=== PATIENT | female | born 1960 | race African-American/Black ===

== ENCOUNTER → 2017-10-06 | Outpatient (CLI) | payer MEDICARE, OTHER ==
[~2017-10-06] MED LIST: ASPI-482 PO; CARV12.52 PO; CARV6.252 PO; CHOL100017 PO; COLE3.753 PO; DIAZEPAM10 MG PO; DICY20TA3 PO; ESOM40CA PO; FLUT10SP NS; FLUT1DIS5 IH; FURO20TA3 PO; IOHEXOL 180 MG/ML 10 ML VIAL. ONE; IPRA3AMP23 IH; IPRA4AER IH; KETO5DRO72 OP; LEVO5TAB2 PO; LIDOCAINE 2% PF 2ML VIAL. ONE; LINA145C PO; LOSA25TA4 PO; MESA800T2 PO; METF750T2 PO; NAPR-514 PO; OXYC-327 PO; OXYC15TA PO; POLY17PO29 PO; POLY2500 PO; POTA20TA82 PO; POTA99TA PO; PRAV20TA2 PO; PRED5DRO16 OP; PSYL0.5215 PO; TOPI100T8 PO; TORS20TA2 PO; TRAM50TA PO; TRAZ150T49 PO; methylPREDNISolone ACETATE 40 MG/ML VIAL. ONE; methylPREDNISolone ACETATE 80 MG/ML VIAL. ONE
--- NOTE | 2017-10-06 23:04 | PAIN ---
DATE OF SERVICE: 10/06/2017 INITIAL CONSULTATION FOR PAIN CLINIC CHIEF COMPLAINT: Left-sided low back and left lower extremity pain. SECONDARY COMPLAINT: Left-sided neck and left upper extremity pain. HISTORY OF PRESENT ILLNESS: This is a 57-year-old female who presents with history of pain for 20 years. The patient reports it gradually increased. 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 The patient reports over the years, she has had multiple physical therapies, chiropractic treatments, exercises, never had any interventional techniques by her report in the past. The patient reports that the pain is now constant, sharp, stabbing, shooting, throbbing, radiating as described in the left side, both the low back and leg and the neck and shoulder. The patient reports the low back and leg is her main chief complaint. The patient reports it wakens her from sleep at night at least 2-3 times. She has to take pain medication to get back to sleep. It affects her bowel or bladder control as well but without any incontinence she reports. It does affect her ability to walk. She uses a cane most times, does not have one with her on her presentation today. The patient did have some plain films of the lumbar spine done dated 04/02/2015. The patient reports no other studies since that time showed degenerative disk disease from L2 through L5 with marginal osteophytes note, [id number] bilateral articular facet disease from L4 to S1, no compression fractures, several pelvic calcifications consistent with phlebolith with degenerative changes seen throughout. The patient rates her disability rate from 0-10, 10 being the worst, is a 10 in all categories, family and home responsibilities, social activity, recreation, occupation, sexual behavior, life support activities and self-care activities. The patient reports no loss of motor function with significant fatigability of the left lower extremity with activity as well as the left upper extremity with repetitive motions, driving or reaching overhead repetitively. PAST MEDICAL HISTORY: Significant for type 2 diabetes; hypothyroidism; cigarette smoking, continues; hypertension; arthritis and obesity. PAST SURGICAL HISTORY: Previous surgery includes sinus surgery in 2002, cataract extraction in 2015 bilaterally and right ankle surgery in the past. CURRENT MEDICATIONS: Include metformin, naproxen, oxycodone extended release and immediate release, polyethylene, potassium, losartan, Welchol, Linzess, carvedilol, levocetirizine, pravastatin, torsemide, tramadol, daily baby aspirin, Nexium and Asacol. ALLERGIES: The patient is allergic to LATEX, SULFA, CEPHALEXIN, CODEINE and PENICILLIN. FAMILY HISTORY: Significant for hypertension and diabetes. SOCIAL HISTORY: The patient does not drink alcohol and does smoke about 1 pack a day and has so for the past 20 years or more. The patient is single, reports she is on disability secondary to her injury 20 years ago. Uses no recreational or illicit or illegal drugs or other substances. REVIEW OF SYSTEMS: The patient's review of systems is positive for those items mentioned in history of present illness. All systems reviewed and otherwise negative. It is complete, full and well documented on the patient's chart. PHYSICAL EXAMINATION: VITAL SIGNS: The patient's blood pressure 126/78, pulse 91, respirations 18, temperature is 98.2 degrees Fahrenheit, height is 5 feet 2 inches and weight is 287 pounds. GENERAL: The patient is awake, alert, oriented, appropriate and very pleasant demeanor. HEENT: Head shows normocephalic and atraumatic. Extraocular movements are intact and symmetrical. Oral cavity: Mucous membranes moist and pink. Dentition is intact. NECK: Shows anterior throat supple without palpable lymphadenopathy noted. Swallow reflex symmetrical. CHEST: Shows normal on inspection. Breath sounds clear to auscultation bilaterally. HEART: Shows S1 and S2 clear. No murmurs auscultated. ABDOMEN: Obese, soft, nontender and nondistended. No palpable organomegaly is noted. No rebound or guarding demonstrated. BACK: Shows spine grossly in the midline. Slight exaggeration of thoracic kyphosis, normal appearing cervical lordotic curvature and lumbar lordotic curvature. No previous scars are noted. The patient's lumbar paraspinous muscle shows symmetrical on inspection and palpation shows some moderate tenderness throughout the upper, middle and lower distribution of the paraspinous muscles bilaterally, only diffusely without specific radiation and without trigger points. No tenderness over the spinous processes, sacrum or sacroiliac regions. The patient has good rotational motion of the lumbar spine, both laterally greater than 10 degrees, right and left as well as extension greater than 10 degrees, forward flexion 45 degrees without significant pain reported. EXTREMITIES: The patient's lower extremities show deep tendon reflexes at 2+ in the patellar, 1+ tendo-calcaneus tendons are equal. Motor exam is strong with 5/5 dorsiflexion, extension, quadriceps and hamstring flexion and equal. Straight leg raise is noted to be slightly positive on the left at about 45 degrees, decreased with knee flexion, negative on the right. Gaenslen's and Jeff's maneuvers are negative bilaterally. Peripheral pulses are 1+ posterior tibia. No peripheral edema is noted bilaterally. Lower extremities are warm and dry to touch, equal in color and appearance. The patient is able to stand, stand on her toes without significant difficulty or loss of balance. Upper extremities show deep tendon reflexes 2+ in the biceps and triceps tendons. Motor exam is strong with sheet hanger strength rated 5/5 as is bicep and tricep flexion. Peripheral pulses are 2+ radial distribution. Shoulder shrug is strong and intact without loss of strength on resistance as is abduction of shoulder to 90 degrees without loss of strength bilaterally. SKIN: Shows warm and dry, good turgor. No sores, rashes or bruising. IMPRESSION: 1. This is a 57-year-old female with a long history approximately 20 years of previous injury with left-sided both cervical radicular symptoms and lumbar radicular symptoms with plain films of lumbar spine as noted. 2. Plain films of lumbar spine as noted. 3. Type 2 diabetes. 4. Hypertension. 5. Obesity. 6. Cigarette smoking. 7. Arthritis. PLAN: Options were discussed with the patient including conservative medical management, physical therapy, interventional techniques. She would like to pursue interventional techniques. We discussed a lumbar epidural steroid injection using the using description as well as anatomical models to describe the procedure. Risks were then discussed including, but not limited to bleeding, infection, possibility of epidural hematoma and subsequent neurological compromise, dural puncture, headaches, spinal cord and/or nerve damage, side effects of steroid medication and poor results regarding pain control. The patient understands and wished to proceed. The patient will return to the clinic in approximately 2 weeks for followup. We did discuss obtain MRI scans of both the cervical and lumbar spine has been 2 years since she had any studies done. To better understand any etiology that may be causing the radicular symptoms both in the neck and the low back, we will have these ordered and reviewed by the time she is set to return in approximately 2 weeks for followup. DIAGNOSES: 1. Lumbar radiculopathy with lumbar degenerative disk disease. 2. Cervical radiculopathy with cervical degenerative disk disease. PROCEDURES: Lumbar epidural steroid injection, translaminar approach at the L4-L5 level using C-arm fluoroscopic guidance under sterile prep and drape using local anesthetic. MEDICATION INJECTED: A total of 120 mg Depo-Medrol plus 10 mL of preservative-free normal saline and 2 mL of Isovue for contrast. CONDITION AT DISCHARGE: Stable. The patient tolerated the procedure well and had no complications. FRAN QUINTERO MD DR: VIJAY/leo JOB#: [id number] / [id number] ABDOUL Ashraf MD
== END | disposition home or self-care (01) ==
LOC: PNCL 12:41
PROVIDERS: ATTEND Anesthesiology
DX: M51.16 Intervertebral disc disorders with radiculopathy, lumbar region (principal); E11.9 Type 2 diabetes mellitus without complications; I10 Essential (primary) hypertension; M19.90 Unspecified osteoarthritis, unspecified site; F17.210 Nicotine dependence, cigarettes, uncomplicated; E66.9 Obesity, unspecified; E03.9 Hypothyroidism, unspecified; F32.9 Major depressive disorder, single episode, unspecified; J45.909 Unspecified asthma, uncomplicated; F41.9 Anxiety disorder, unspecified; K21.9 Gastro-esophageal reflux disease without esophagitis; Z79.899 Other long term (current) drug therapy; Z79.82 Long term (current) use of aspirin; Z68.33 Body mass index [BMI] 33.0-33.9, adult; Z91.040 Latex allergy status; Z88.2 Allergy status to sulfonamides; Z88.5 Allergy status to narcotic agent; Z88.8 Allergy status to other drugs, medicaments and biological substances; Z88.0 Allergy status to penicillin; Z98.42 Cataract extraction status, left eye; Z98.41 Cataract extraction status, right eye
CPT/HCPCS: 62323; J1030; J1040; J2001; Q9965

== ENCOUNTER → 2017-10-15 | Outpatient (CLI) | payer MEDICARE, OTHER ==
[~2017-10-15] MED LIST changes: -IOHEXOL 180 MG/ML 10 ML VIAL. ONE; -LIDOCAINE 2% PF 2ML VIAL. ONE; -LOSA25TA4 PO; +LOSA25TA5 PO; -methylPREDNISolone ACETATE 40 MG/ML VIAL. ONE; -methylPREDNISolone ACETATE 80 MG/ML VIAL. ONE
--- NOTE | 2017-10-15 15:58 | KCIC ---
MRI of the lumbar spine without contrast 10/15/2017 CLINICAL HISTORY: Chronic low back pain which radiates down the left leg. TECHNIQUE: Unenhanced T1-weighted and T2-weighted sagittal and axial and inversion recovery sagittal images of the lumbar spine were obtained. FINDINGS: Minimal S-shaped curvature of the thoracolumbar spine is seen. Degenerative signal changes are seen involving the L4-5 and L5-S1 discs. Degenerative signal changes are seen within the marrow surrounding these discs. Loss of height of the L5-S1 disc is noted. The conus medullaris is normal morphology, position, and signal characteristics. The L1-2 disc space is within normal limits. At the L2-3, L3-4 and L4-5 disc spaces there are mild generalized disc bulges. Degenerative changes are seen involving the facet joints bilaterally. There is mild ligamentum flavum hypertrophy bilaterally. These findings when combined do not result in significant central spinal canal or neural foraminal stenosis. At the L5-S1 disc space there is a mild to moderate generalized disc bulge. This is eccentric to the right. Degenerative changes are seen involving the facet joints bilaterally. There is mild ligamentum flavum hypertrophy bilaterally. These findings when combined result in mild central spinal canal stenosis. Mild right neural foraminal stenosis is seen. The left neural foramen is patent. IMPRESSION: The changes of degenerative disc disease are seen throughout the lumbar spine. These findings results in mild central spinal canal stenosis with mild right neural foraminal stenosis at L5-S1. Electronically signed by: Roel Peoples MD (10/15/2017 3:54 PM) [facility]
--- NOTE | 2017-10-15 16:12 | KCIC ---
MRI of the cervical spine without contrast 10/15/2017 CLINICAL HISTORY: Chronic neck pain which radiates down the left arm. TECHNIQUE: Unenhanced T1-weighted, T2-weighted and inversion recovery sagittal and gradient echo and T2-weighted axial images of the cervical spine were obtained. FINDINGS: Very mild lateral curvature of the cervical spine is seen convex to the left. There is straightening of the normal cervical lordosis. Degenerative signal changes are seen involving all of the disks of the cervical spine. Degenerative signal changes are seen within the marrow surrounding these discs. The cervical spinal cord is normal morphology, position, and signal characteristics. A 2.5 cm oval-shaped high signal intensity structure seen in the expected location of the right lobe of thyroid gland on the T2-weighted images. This is incompletely evaluated on this study. This may represent a colloid cyst. On the axial images throughout the cervical disc spaces, relatively mild degenerative changes are seen consisting of minimal to mild generalized disc bulges and degenerative changes involving the uncovertebral and facet joints. No focal disc herniation is seen. These findings do not result in significant central spinal canal or neural foraminal stenosis at any level. IMPRESSION: Relatively mild degenerative changes are seen involving the cervical spine as outlined above. These findings do not result in significant central spinal canal or neural foraminal stenosis at any level. Electronically signed by: Roel Peoples MD (10/15/2017 4:09 PM) [facility]
== END | disposition home or self-care (01) ==
LOC: KCIC MRI 13:16
PROVIDERS: ATTEND Anesthesiology
DX: M48.061 Spinal stenosis, lumbar region without neurogenic claudication (principal); M51.16 Intervertebral disc disorders with radiculopathy, lumbar region; M50.10 Cervical disc disorder with radiculopathy, unspecified cervical region; Z88.0 Allergy status to penicillin; Z88.2 Allergy status to sulfonamides; Z88.1 Allergy status to other antibiotic agents; Z91.040 Latex allergy status; Z88.5 Allergy status to narcotic agent; Z91.048 Other nonmedicinal substance allergy status
CPT/HCPCS: 72141; 72148

== ENCOUNTER → 2017-10-20 | Outpatient (CLI) | payer MEDICARE, OTHER ==
[~2017-10-20] MED LIST changes: +IOHEXOL 180 MG/ML 10 ML VIAL. ONE; +LIDOCAINE 2% PF 2ML VIAL. ONE; +methylPREDNISolone ACETATE 40 MG/ML VIAL. ONE; +methylPREDNISolone ACETATE 80 MG/ML VIAL. ONE
--- NOTE | 2017-10-20 19:52 | PAIN ---
DATE OF SERVICE: 10/20/2017 PROGRESS NOTE FOR PAIN CLINIC DIAGNOSES: 1. Lumbar radiculopathy with lumbar degenerative disk disease. 2. Cervical radiculopathy with cervical degenerative disk disease. HISTORY OF PRESENT ILLNESS: The patient is a 57-year-old female who returns for followup status post lumbar epidural steroid injection x 1. The patient reports about 60% improvement for the first week and then the pain returned to near its baseline level. The patient reports no new motor or sensory deficits, no new bowel or bladder incontinence or other complaints, but still significant pain across the low back, into the left lower extremity as it was previous. The patient reports it is constant, unbearable at times, stabbing, sharp, again doing much better for the first 5-6 days, but then returning fairly significantly. The patient reports no new motor or sensory deficits, no new bowel or bladder incontinence or other changes. The patient reports her pain is a 9 on a scale of 10 at its worst, 9 on average, 6 at its least and is a 9 today. The patient reports it awakens her from sleep, but only very rarely, usually worse with standing and walking, better with sitting or lying down. PHYSICAL EXAMINATION: VITAL SIGNS: The patient's blood pressure is 141/82, pulse 79, respirations 18, temperature 98.1 degrees Fahrenheit, height is 5 feet 2 inches, weight is 251 pounds. GENERAL: The patient is awake, alert, oriented, appropriate, very pleasant demeanor. HEENT: Head shows normocephalic, atraumatic. Extraocular muscles are intact and symmetrical. Oral cavity: Mucous membranes are moist and pink. Dentition is intact. NECK: Shows anterior throat supple without palpable lymphadenopathy noted. Swallow reflex is symmetrical. CHEST: Shows normal on inspection. Breath sounds are clear to auscultation bilaterally. HEART: Shows S1, S2 clear. No murmurs auscultated. ABDOMEN: Soft, nontender, nondistended. No palpable organomegaly is noted. No rebound or guarding demonstrated. BACK: Shows spine grossly in the midline. Slight exaggeration of thoracic kyphosis and some minor flattening of lumbar lordotic curvature. Lumbar paraspinous muscle shows symmetrical on inspection. Palpation shows some moderate tenderness diffusely, but only in the low lumbar distribution without radiation. The patient has good rotational motion of lumbar spine, both laterally as well as extension and flexion without difficulty. EXTREMITIES: Lower extremities show deep tendon reflexes 1+ in the patellar tendons and tendo calcaneus tendons. Motor exam is strong with approximately 4 on a scale of 5, but equal and symmetrical with dorsiflexion, extension, quadriceps and hamstring flexion and symmetrical. Peripheral pulses are 1+ posterior tibia. No peripheral edema is noted. Options were discussed with the patient. The patient's old chart was reviewed as her current medication regimen updated. Current review of systems updated today as well. We will proceed with a second in the series of lumbar epidural steroid injection today with fluoroscopic guidance. Risks were again discussed including, but not limited to bleeding, infection, possibility of epidural hematoma and subsequent neurological compromise, dural puncture, headaches, spinal cord and/or nerve damage, side effects of steroid medication and poor results regarding pain control. The patient understands and wished to proceed. The patient will return to the clinic in approximately 2 weeks for followup, was counseled on return appointment, activity level and side effects to be aware of. DIAGNOSIS: Lumbar radiculopathy with lumbar degenerative disk disease. PROCEDURE: Lumbar epidural steroid injection, translaminar approach at L5-S1 level using C-arm fluoroscopic guidance under sterile prep and drape using local anesthetic. MEDICATION INJECTED: A total of 120 mg Depo-Medrol plus 10 mL of preservative-free normal saline and 2 mL of Isovue for contrast. CONDITION AT DISCHARGE: Stable. The patient tolerated the procedure well, had no complications. FRAN QUINTERO MD DR: VIJAY/leo JOB#: [id number] / [id number]
== END | disposition home or self-care (01) ==
LOC: PNCL 11:24
PROVIDERS: ATTEND Anesthesiology
DX: M51.16 Intervertebral disc disorders with radiculopathy, lumbar region (principal); M50.10 Cervical disc disorder with radiculopathy, unspecified cervical region; Z88.1 Allergy status to other antibiotic agents; Z91.040 Latex allergy status; Z88.5 Allergy status to narcotic agent; Z88.0 Allergy status to penicillin; Z88.2 Allergy status to sulfonamides; Z91.048 Other nonmedicinal substance allergy status
CPT/HCPCS: 62323; J1030; J1040; J2001; Q9965

== ENCOUNTER → 2017-11-03 | Outpatient (CLI) | payer MEDICARE, OTHER ==
--- NOTE | 2017-11-03 17:27 | RAD ---
Examination: 2 views of the left shoulder and the 3 views of the bilateral knees HISTORY: History of left shoulder pain from lifting, bilateral knee pain COMPARISON: None available FINDINGS: Left shoulder: The humerus head is within the glenoid. The acromioclavicular joint grossly appears unremarkable.There is no acute fracture or dislocation identified. Bilateral knees: There is moderate joint space loss identified in the bilateral knee joints particularly in the medial compartments. There is no acute fracture-dislocation identified. IMPRESSION: 1. No acute osseous findings. 2. Moderate tricompartmental degenerative changes bilateral knees. Electronically signed by: Familia Riley MD (11/03/2017 5:24 PM) [id number]
--- NOTE | 2017-11-03 20:17 | PAIN ---
DATE OF SERVICE: 11/03/2017 PROGRESS NOTE FOR PAIN CLINIC DIAGNOSES: 1. Lumbar radiculopathy with lumbar degenerative disk disease. 2. Cervical radiculopathy with cervical degenerative disk disease. 3. Bilateral knee joint pain. 4. Left shoulder joint pain. HISTORY OF PRESENT ILLNESS: The patient is a 57-year-old female who returns for followup status post lumbar epidural steroid injection x 2. The patient reports that she did very well after the last injection with approximately 50% improvement in her low back and left lower extremity pain. The pain is still there, but is much reduced. She has been increasing her distance walking, also bending with greater ease and comfort, doing household activities with greater ease, sleeping well at night, but reports that it can awaken her, but not every night, but about every 6-8 hours it can if she lays on her left side. The patient reports no new motor or sensory deficits, no new bowel or bladder incontinence or other complaints. The patient reports her pain is a 7 on a scale of 10 at its worst, 6 on average, 6 at its least, that is described as stabbing, aching and dull and radiating into the left leg. The patient also complains of left shoulder pain with motion and bilateral knee pain, which has not changed with the injections. PHYSICAL EXAMINATION: VITAL SIGNS: The patient's blood pressure is 125/30, pulse 75, respirations are 16, temperature 98.0 degrees Fahrenheit, height is 5 feet 2 inches, weight is 248 pounds. GENERAL: The patient is awake, alert, oriented, appropriate, very pleasant demeanor. HEENT: Head shows normocephalic, atraumatic. Extraocular movements are intact and symmetrical. Oral cavity: Mucous membranes are moist and pink. Dentition is intact. NECK: Shows anterior throat supple without palpable lymphadenopathy noted. Swallow reflex is symmetrical. CHEST: Shows normal on inspection. Breath sounds are clear to auscultation bilaterally. HEART: Shows S1, S2 clear. No murmurs auscultated. ABDOMEN: Obese, soft, nontender, nondistended. No palpable organomegaly is noted. No rebound or guarding demonstrated. BACK: Shows spine grossly in the midline. Normal appearing thoracic kyphosis and flattening of lumbar lordotic curvature. Lumbar paraspinous muscle shows symmetrical with diffuse tenderness throughout the upper, middle and lower distribution of the paraspinous muscles, but only diffusely without radiation. EXTREMITIES: Lower extremities show deep tendon reflexes 1+ in the patellar and tendo-calcaneus tendons. Motor exam is strong, approximately 4 on a scale of 5, but equal and symmetrical with dorsiflexion and extension. Peripheral pulses are 1+ posterior tibial. Options were discussed with the patient. The patient's old chart was reviewed as her current medication regimen updated. Current review of systems updated today as well. We will proceed with a lumbar epidural steroid injection today with fluoroscopic guidance, it is the third in the series. Risks were again discussed including, but not limited to bleeding, infection, possibility of epidural hematoma, subsequent neurologic compromise, dural puncture, headaches, spinal cord and/or nerve damage, side effects of steroid medication and poor results regarding pain control. The patient understands and wished to proceed. The patient will return to the clinic in approximately 2 weeks for followup, was counseled on return appointment, activity level and side effects to be aware of. Also, order x-rays, plain films of the bilateral knees and the left shoulder to see if she has any significant pain with motion of each of these joints. We will order these and have them scheduled soon. DIAGNOSIS: Lumbar radiculopathy with lumbar degenerative disk disease. PROCEDURE: Lumbar epidural steroid injection, translaminar approach at L5-S1 level using C-arm fluoroscopic guidance under sterile prep and drape using local anesthetic. MEDICATION INJECTED: A total of 120 mg Depo-Medrol plus 10 mL of preservative-free normal saline and 2 mL of Isovue for contrast. CONDITION AT DISCHARGE: Stable. The patient tolerated the procedure well, had no complications. FRAN QUINTERO MD DR: VIJAY/leo JOB#: [id number] / [id number]
== END | disposition home or self-care (01) ==
LOC: PNCL 11:22
PROVIDERS: ATTEND Anesthesiology
DX: M51.16 Intervertebral disc disorders with radiculopathy, lumbar region (principal); M50.10 Cervical disc disorder with radiculopathy, unspecified cervical region; M25.562 Pain in left knee; M25.561 Pain in right knee; M25.512 Pain in left shoulder; Z88.0 Allergy status to penicillin; Z88.2 Allergy status to sulfonamides; Z88.5 Allergy status to narcotic agent; Z88.1 Allergy status to other antibiotic agents; Z91.048 Other nonmedicinal substance allergy status; Z91.040 Latex allergy status
CPT/HCPCS: 62323; 73030; 73562; J1030; J1040; J2001; Q9965

== ENCOUNTER 2018-04-11 15:38 | Inpatient (IN) | payer MEDICARE, OTHER ==
[~2018-04-11] VITALS: Ht 157.5 cm; Wt 111.6 kg
[~2018-04-11 15:38] MED LIST changes: +CARV12.511 PO; -CARV12.52 PO; +CARV6.2511 PO; -CARV6.252 PO; -IOHEXOL 180 MG/ML 10 ML VIAL. ONE; -LIDOCAINE 2% PF 2ML VIAL. ONE; -LINA145C PO; +LINZESS145 MCG PO; -LOSA25TA5 PO; +LOSA25TA54 PO; -OXYC-327 PO; +OXYC1TAB19 PO; -methylPREDNISolone ACETATE 40 MG/ML VIAL. ONE; -methylPREDNISolone ACETATE 80 MG/ML VIAL. ONE
[2018-04-11] MEDS ORDERED: IPRATRPIUM/ALBUTEROL 0.5/2.5MG 3 ML NEBU. NEB ONE (17:45)
[2018-04-11] MEDS ORDERED: IV NORMAL SALINE 500ML BAG 500 ML IV ONE (17:45)
--- NOTE | 2018-04-11 18:34 | PHYS DOC ---
Past Medical History Past Medical History: Diabetes-Type II, Hypertension Past Surgical History: Other Additional Past Surgical Histo: ANKLE SURG, NASAL SINUS. Alcohol Use: None Drug Use: None Adult General Chief Complaint Chief Complaint: SHORTNESS OF BREATH HPI HPI 57 y/o female presents to ER for c/o 3 wk hx of SOA. She reports she was seen by her PCP and had been tx'd with an antibiotic- her sxs have continued so she came to ER for eval. She reports this last weekend she had N/V and fever. She denies N/V/D episodes today. She reports she has had wheezing with prod. cough and chest congestion. She reports she has had intermittent mid CP which increases with coughing episodes. She reports she has felt fatigued denies focal weaknesses. She denies abd pain, urinary sxs, neck/back pain, or acute swelling to LEs. Review of Systems Review of Systems Constitutional: Reports fever last weekend- reports fatigue Eyes: Denies change in visual acuity, redness, or eye pain [] HENT: Denies nasal congestion or sore throat [] Respiratory: Reports prod. cough and SOA Cardiovascular: Reports mid CP GI: Denies abdominal pain, nausea, vomiting, bloody stools or diarrhea [] : Denies dysuria or hematuria [] Musculoskeletal: Denies back/neck pain or joint pain [] Integument: Denies rash or skin lesions [] Neurologic: Denies headache, focal weakness or sensory changes [] Endocrine: Denies polyuria or polydipsia [] All other systems were reviewed and found to be within normal limits, except as documented in this note. Current Medications Current Medications Current Medications Medications (Trade) Dose Ordered Sig/Julee Start Time Stop Time Status Last Admin Dose Admin Albuterol/ Ipratropium (Duoneb) 3 ml 1X ONCE 04/11/18 17:45 04/11/18 17:47 DC 04/11/18 17:57 3 ML Sodium Chloride 500 ml @ 500 mls/hr 1X ONCE 04/11/18 17:45 04/11/18 18:44 DC 04/11/18 19:26 500 MLS/HR Allergies Allergies Physical Exam Physical Exam Constitutional: Well developed, well nourished, no acute distress, non-toxic appearance. [] HENT: Normocephalic, atraumatic, bilateral ears normal, oropharynx moist, no oral exudates, nose normal. [] Eyes: Pupils equal, conjunctiva normal, no discharge. [] Neck: Normal range of motion, no tenderness, supple, no stridor. Trachea midline Cardiovascular:Heart rate regular rhythm, no murmur [] Lungs & Thorax: Coarse sounds bilat. upper [place] with expir. wheezing bilat.- decreased air movement in in bases. Resp. equal/nonlabored. Speaking in full sentences. Abdomen: Bowel sounds normal, soft, no tenderness, no masses, no pulsatile masses. [] Skin: Warm, dry, no erythema, no rash. [] Back: No tenderness, no CVA tenderness. [] Extremities: No tenderness, no cyanosis, no clubbing, ROM intact, no edema. [] Neurologic: Alert and oriented X 3, normal motor function, normal sensory function, no focal deficits noted. [] Psychologic: Affect normal, judgement normal, mood normal. [] Current Patient Data Vital Signs Vital Signs Date Time Temp Pulse Resp B/P (MAP) Pulse Ox O2 Delivery O2 Flow Rate FiO2 04/11/18 19:11 76 129/67 (87) 97 Room Air 04/11/18 17:30 20 04/11/18 16:20 98.6 98.6 Lab Values Laboratory Tests Test 04/11/18 18:25 04/11/18 18:40 Influenza Type A Antigen Negative (NEGATIVE) Influenza Type B Antigen Negative (NEGATIVE) White Blood Count 5.4 x10^3/uL (4.0-11.0) Red Blood Count 4.33 x10^6/uL (3.50-5.40) Hemoglobin 12.2 g/dL (12.0-15.5) Hematocrit 37.9 % (36.0-47.0) Mean Corpuscular Volume 88 fL (79-100) Mean Corpuscular Hemoglobin 28 pg (25-35) Mean Corpuscular Hemoglobin Concent 32 g/dL (31-37) Red Cell Distribution Width 14.3 % (11.5-14.5) Platelet Count 270 x10^3/uL (140-400) Neutrophils (%) (Auto) 53 % (31-73) Lymphocytes (%) (Auto) 35 % (24-48) Monocytes (%) (Auto) 11 % (0-9) H Eosinophils (%) (Auto) 0 % (0-3) Basophils (%) (Auto) 0 % (0-3) Neutrophils # (Auto) 2.9 x10^3uL (1.8-7.7) Lymphocytes # (Auto) 1.9 x10^3/uL (1.0-4.8) Monocytes # (Auto) 0.6 x10^3/uL (0.0-1.1) Eosinophils # (Auto) 0.0 x10^3/uL (0.0-0.7) Basophils # (Auto) 0.0 x10^3/uL (0.0-0.2) Sodium Level 143 mmol/L (136-145) Potassium Level 4.1 mmol/L (3.5-5.1) Chloride Level 106 mmol/L (98-107) Carbon Dioxide Level 25 mmol/L (21-32) Anion Gap 12 (6-14) Blood Urea Nitrogen 8 mg/dL (7-20) Creatinine 0.9 mg/dL (0.6-1.0) Estimated GFR (Cockcroft-Gault) 77.5 BUN/Creatinine Ratio 9 (6-20) Glucose Level 105 mg/dL (70-99) H Calcium Level 8.3 mg/dL (8.5-10.1) L Magnesium Level 2.3 mg/dL (1.8-2.4) Total Bilirubin 0.1 mg/dL (0.2-1.0) L Aspartate Amino Transferase (AST) 23 U/L (15-37) Alanine Aminotransferase (ALT) 20 U/L (14-59) Alkaline Phosphatase 93 U/L (46-116) Troponin I Quantitative < 0.017 ng/mL (0.000-0.055) Total Protein 7.3 g/dL (6.4-8.2) Albumin 3.2 g/dL (3.4-5.0) L Albumin/Globulin Ratio 0.8 (1.0-1.7) L Laboratory Tests 04/11/18 18:40 Laboratory Tests 04/11/18 18:40 EKG EKG EKG obtained 04/11/18 at [address] Gallegos Sinus rhythm Rate 79 No STEMI Radiology/Procedures Radiology/Procedures PROCEDURE: CHEST PA & LATERAL CHEST PA LATERAL History: Cough, congestion, shortness of air for 2 weeks Comparison: 03/31/2013 Findings: 2 views of the chest are submitted. There is no pleural fluid or pneumothorax. Heart size is stable, within normal limits. No significant infiltrate is identified by radiograph. Impression: 1. No significant infiltrate is identified by radiograph. Electronically signed by: Kadi Florez MD (04/11/2018 11:21 PM) [facility] DICTATED and SIGNED BY: KADI FLOREZ MD DATE: 04/11/182319 Course & Med Decision Making Course & Med Decision Making Pertinent Labs and Imaging studies reviewed. (See chart for details) 1924: Patient was evaluated in the ER for complaints of shortness of air, productive cough and mid chest pain. Patient has had symptoms for several weeks and had been treated with dose of antibiotics with no improvement in symptoms. Patient was given DuoNeb treatment while in the ER and continues to have coarse bilateral upper lung sounds with expiratory wheeze. Test results were discussed with patient EKG with no acute ST elevation and troponin was <0.017. Chest x- ray was viewed by Dr. Gallegos with no obvious findings of acute abnorm. With patient's continued labored breathing and lung sounds discussed admission for further evaluation and care she is agreeable with this plan. Will provide patient with additional DuoNeb treatment and dose of Solu-Medrol. Will start patient on oral doxycycline for probable bronchitis. She is a daily smoker so smoking cessation was discussed. Will discuss patient's case and admit plans with hospitalist and admit to their services for further care. Dragon Disclaimer Dragon Disclaimer This electronic medical record was generated, in whole or in part, using a voice recognition dictation system. Departure Departure Impression: Primary Impression: Dyspnea Additional Impression: Acute bronchitis Disposition: ADMITTED INPATIENT Admitting Physician: Alyce Joyce Condition: STABLE Referrals: NOHEMI DUMONT MD (PCP) Scripts Prednisone (PREDNISONE) 20 Mg Tablet 2 TAB PO DAILY for copd for 4 Days, #8 TAB Prov: CONNIE HERNANDEZ MD 04/13/18 Guaifenesin (MUCINEX) 600 Mg Tablet.er 600 MG PO BID for COUGH for 7 Days, #14 TAB.SR Prov: CONNIE HERNANDEZ MD 04/13/18 Ipratropium/Albuterol Sulfate (DUONEB 0.5-3(2.5) MG/3 ML) 3 Ml Ampul.neb 3 ML NEB Q4HRS W/A for COPD for 30 Days, #150 EACH Prov: CONNIE HERNANDEZ MD 04/13/18 Doxycycline Hyclate (DOXYCYCLINE HYCLATE) 100 Mg Tablet 100 MG PO BID for copd for 5 Days, #10 TAB Prov: CONNIE HERNANDEZ MD 04/13/18 Problem Qualifiers REFANNETCAROLINE APRN Apr 11, 2018 18:34
[2018-04-11 18:50] LABS: BASO % 0 % (0-3); EOS % 0 % (0-3); HEMATOCRIT 37.9 % (36.0-47.0); HEMOGLOBIN 12.2 g/dL (12.0-15.5); LYMPH # 1.9 x10^3/uL (1.0-4.8); LYMPH % 35 % (24-48); MEAN CORPUSCULAR HEMOGLOBIN 28 pg (25-35); MEAN CORPUSCULAR HGB CONC 32 g/dL (31-37); MEAN CORPUSCULAR VOLUME 88 fL (79-100); MONO # 0.6 x10^3/uL (0.0-1.1); MONO % 11 % (0-9); NEUT # 2.9 x10^3uL (1.8-7.7); NEUT % 53 % (31-73); PLATELET COUNT 270 x10^3/uL (140-400); RED BLOOD COUNT 4.33 x10^6/uL (3.50-5.40); RED CELL DISTRIBUTION WIDTH 14.3 % (11.5-14.5); WHITE BLOOD COUNT 5.4 x10^3/uL (4.0-11.0)
[2018-04-11 18:58] LABS: CALCIUM 8.3 mg/dL (8.5-10.1); CREATININE 0.9 mg/dL (0.6-1.0); GFR 77.5; POTASSIUM 4.1 mmol/L (3.5-5.1)
[2018-04-11 19:04] LABS: ALBUMIN 3.2 g/dL (3.4-5.0); ALBUMIN/GLOBULIN RATIO 0.8 (1.0-1.7); MAGNESIUM 2.3 mg/dL (1.8-2.4); TOTAL BILIRUBIN 0.1 mg/dL (0.2-1.0); TOTAL PROTEIN 7.3 g/dL (6.4-8.2)
[2018-04-11 19:24] LABS: INFLUENZA A PATIENT NEGATIVE (NEGATIVE); INFLUENZA B PATIENT NEGATIVE (NEGATIVE)
[2018-04-11] MEDS ORDERED: methylPREDNISolone SOD SUCC PF 125 MG/2 ML VIAL. IV ONE (19:45)
[2018-04-11] MEDS ORDERED: DOXYCYCLINE HYCLATE 100 MG TABLET PO ONE (19:45)
[2018-04-11] MEDS ORDERED: ACETAMINOPHEN 325 MG TABLET. PO PRN (20:45)
--- NOTE | 2018-04-11 21:45 | NUR ---
Pt admitted during the noc with audible wheezing noted. Pt currently on RA and does not use O2 at home. Pt oriented to room and surroundings and instructed to not get up if feeling light headed or dizzy. Pt verbalize understanding. Pt medications reviewed during visit. Pt states she does not take insulin however she take oral diabetic medication called "jeramac" pt did not know the spelling and unable to find similar med spelled that way. Pt also with some clarification needed on some of her doses of medications. Pt states she knew some of them but not all. Pt uses [facility] which does not open until after 9am. Will attempt to get verified in the am. Pt with nonproductive cough noted during the noc. BG checked before eating dinner snack and reading 147. Will continue to monitor.
--- NOTE | 2018-04-11 23:24 | RAD ---
CHEST PA LATERAL History: Cough, congestion, shortness of air for 2 weeks Comparison: 03/31/2013 Findings: 2 views of the chest are submitted. There is no pleural fluid or pneumothorax. Heart size is stable, within normal limits. No significant infiltrate is identified by radiograph. Impression: 1. No significant infiltrate is identified by radiograph. Electronically signed by: King Slaughter MD (04/11/2018 11:21 PM) [facility]
[2018-04-11 23:29] VITALS: BP 124/73
[2018-04-12] MEDS: IPRATRPIUM/ALBUTEROL 0.5/2.5MG 3 ML NEBU. NEB SCH ×6 (00:48→20:47)
[2018-04-12] MEDS ORDERED: CARV12.53 PO (02:17)
[2018-04-12 03:19] VITALS: BP 137/72
[2018-04-12 03:41] LABS: BILIRUBIN,URINE NEGATIVE (NEG); CLARITY,URINE CLEAR; COLOR,URINE STRAW; PROTEIN,URINE NEGATIVE (NEG-TRACE); UROBILINOGEN,URINE 0.2 mg/dL (0.2 mg/dL)
[2018-04-12 03:42] LABS: BACTERIA,URINE 0 /HPF (0-FEW); NITRITE,URINE NEGATIVE (NEG); RBC,URINE RARE /HPF (0-2); SQUAMOUS EPITHELIAL CELL,UR OCC /LPF; WBC,URINE 0 /HPF (0-4)
[2018-04-12 04:40] LABS: BASO % 0 % (0-3); EOS % 0 % (0-3); HEMATOCRIT 38.2 % (36.0-47.0); HEMOGLOBIN 12.3 g/dL (12.0-15.5); LYMPH # 0.9 x10^3/uL (1.0-4.8); LYMPH % 23 % (24-48); MEAN CORPUSCULAR HEMOGLOBIN 28 pg (25-35); MEAN CORPUSCULAR HGB CONC 32 g/dL (31-37); MEAN CORPUSCULAR VOLUME 88 fL (79-100); MONO # 0.1 x10^3/uL (0.0-1.1); MONO % 3 % (0-9); NEUT % 74 % (31-73); PLATELET COUNT 283 x10^3/uL (140-400); RED BLOOD COUNT 4.37 x10^6/uL (3.50-5.40); RED CELL DISTRIBUTION WIDTH 14.3 % (11.5-14.5)
[2018-04-12 04:55] LABS: CALCIUM 8.5 mg/dL (8.5-10.1); CREATININE 0.9 mg/dL (0.6-1.0); GFR 77.5
--- NOTE | 2018-04-12 06:43 | NUR ---
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 Longo this am for routine consult for pulmonary.
[2018-04-12 07:00] VITALS: BP 146/76
--- NOTE | 2018-04-12 08:33 | EKG ---
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
[2018-04-12] MEDS ORDERED: IPRATRPIUM/ALBUTEROL 0.5/2.5MG 3 ML NEBU. NEB ONE (09:15)
[2018-04-12] MEDS ORDERED: traMADol 50 MG TABLET PO PRN (09:30)
--- NOTE | 2018-04-12 09:30 | PDOC1 ---
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 1-2 days after this encounter the patient started complaining off generalized malaise cough sputum production no pleurisy has been reported she does refers dyspnea then has progressed to dyspnea on exertion over the last couple days reason why she came to the emergency department for further evaluation. The patient unfortunately did not percent significant improvement from her symptoms indeed the reason why we were asked to admit the patient for further treatment. The patient denies pleurisy she is hemodynamically stable does not have increased work of breathing and is able to finish full sentences. The patient has history of asthma in the past but has never been intubated for it. The patient is an active smoker counseling has been done less than 10 minutes the importance of abstaining from smoking moving forward was discussed with the patient during my encounter. Patient will be treated aggressively with secretion management steroids for the acute inflammatory process and empiric antibiotics doxycycline for acute bronchitis Past Medical History Cardiovascular: HTN Endocrine: Diabetes Past Surgical History Past Surgical History: No pertinent history Family History Family History: Other (reviewed and found negative noncontributory to the present) Social History Smoke: # pack years (40) ALCOHOL: rare Drugs: None Current Problem List Problem List Problems Medical Problems: (1) Acute bronchitis Status: Acute (2) Dyspnea Status: Acute Current Medications Current Medications Current Medications Medications (Trade) Dose Ordered Sig/Julee Start Time Stop Time Status Last Admin Dose Admin Acetaminophen (Tylenol) 650 mg PRN Q4HRS PRN 04/11/18 20:45 04/12/18 20:44 04/12/18 08:13 650 MG Albuterol/ Ipratropium (Duoneb) 3 ml Q4H 04/12/18 09:30 UNV Doxycycline Hyclate (Vibra-Tab) 100 mg BID 04/12/18 09:30 UNV Guaifenesin (Mucinex) 600 mg BID 04/12/18 09:30 UNV Influenza Virus Vaccine (Afluria Trivalent [id number] Syringe) 0.5 ml ONCE ONCE 04/12/18 09:00 04/12/18 09:01 DC 04/12/18 08:14 0.5 ML Methylprednisolone Sodium Succinate (SOLU-Medrol 125MG VIAL) 125 mg Q8HRS 04/12/18 14:00 UNV Sodium Chloride 500 ml @ 500 mls/hr 1X ONCE 04/11/18 17:45 04/11/18 18:44 DC 04/11/18 19:26 500 MLS/HR Allergies Allergies Allergies Coded Allergies Type Severity Reaction Last Updated Verified Penicillins Allergy Severe short of air 04/11/18 Yes Sulfa (Sulfonamide Antibiotics) Allergy Severe short of air 04/11/18 Yes cephalexin Allergy Severe short of air 04/11/18 Yes codeine Allergy Severe short of air 04/11/18 Yes latex Allergy Intermediate rash 04/11/18 Yes ROS Review of System CONSTITUTIONAL: No fever or chills EYES: No recent changes SKIN: No rash or itching CARDIOVASCULAR: No chest pain, syncope, palpitations, or edema RESPIRATORY: + SOB and cough GASTROINTESTINAL: No nausea, vomiting or abdominal pain NEUROLOGICAL: No headaches or weakness ENDOCRINE: No cold or heat intolerance GENITOURINARY: No urgency or frequency of urination MUSCULOSKELETAL: No back pain or joint pain LYMPHATICS: No enlarged lymph nodes PSYCHIATRIC: No anxiety or depression Physical Exam Physical Exam GEN.: No apparent distress. Alert and oriented.Morbidly obese HEENT: Head is normocephalic, atraumatic NECK: Supple. LUNGS: Coarse breath sounds, distant due to body habitus. No increased work of breathing no accessory muscle use HEART: RRR, S1, S2 present. Peripheral pulses intact ABDOMEN: Soft, nontender. Positive bowel sounds. EXTREMITIES: Without any cyanosis. NEUROLOGIC: Normal speech, normal tone PSYCHIATRIC: Normal affect, normal mood. SKIN: No ulcerations Vitals Vitals Vital Signs Date Time Temp Pulse Resp B/P (MAP) Pulse Ox O2 Delivery O2 Flow Rate FiO2 04/12/18 09:15 95 Room Air 04/12/18 07:00 101.3 64 20 146/76 (99) 101.3 Labs Labs Laboratory Tests Test 04/11/18 18:25 04/11/18 18:40 04/11/18 22:53 04/12/18 02:45 Influenza Type A Antigen Negative (NEGATIVE) Influenza Type B Antigen Negative (NEGATIVE) White Blood Count 5.4 x10^3/uL (4.0-11.0) Red Blood Count 4.33 x10^6/uL (3.50-5.40) Hemoglobin 12.2 g/dL (12.0-15.5) Hematocrit 37.9 % (36.0-47.0) Mean Corpuscular Volume 88 fL (79-100) Mean Corpuscular Hemoglobin 28 pg (25-35) Mean Corpuscular Hemoglobin Concent 32 g/dL (31-37) Red Cell Distribution Width 14.3 % (11.5-14.5) Platelet Count 270 x10^3/uL (140-400) Neutrophils (%) (Auto) 53 % (31-73) Lymphocytes (%) (Auto) 35 % (24-48) Monocytes (%) (Auto) 11 % (0-9) Eosinophils (%) (Auto) 0 % (0-3) Basophils (%) (Auto) 0 % (0-3) Neutrophils # (Auto) 2.9 x10^3uL (1.8-7.7) Lymphocytes # (Auto) 1.9 x10^3/uL (1.0-4.8) Monocytes # (Auto) 0.6 x10^3/uL (0.0-1.1) Eosinophils # (Auto) 0.0 x10^3/uL (0.0-0.7) Basophils # (Auto) 0.0 x10^3/uL (0.0-0.2) Sodium Level 143 mmol/L (136-145) Potassium Level 4.1 mmol/L (3.5-5.1) Chloride Level 106 mmol/L (98-107) Carbon Dioxide Level 25 mmol/L (21-32) Anion Gap 12 (6-14) Blood Urea Nitrogen 8 mg/dL (7-20) Creatinine 0.9 mg/dL (0.6-1.0) Estimated GFR (Cockcroft-Gault) 77.5 BUN/Creatinine Ratio 9 (6-20) Glucose Level 105 mg/dL (70-99) Calcium Level 8.3 mg/dL (8.5-10.1) Magnesium Level 2.3 mg/dL (1.8-2.4) Total Bilirubin 0.1 mg/dL (0.2-1.0) Aspartate Amino Transf (AST/SGOT) 23 U/L (15-37) Alanine Aminotransferase (ALT/SGPT) 20 U/L (14-59) Alkaline Phosphatase 93 U/L (46-116) Troponin I Quantitative < 0.017 ng/mL (0.000-0.055) Total Protein 7.3 g/dL (6.4-8.2) Albumin 3.2 g/dL (3.4-5.0) Albumin/Globulin Ratio 0.8 (1.0-1.7) Glucose (Fingerstick) 147 mg/dL (70-99) Urine Collection Type Unknown Urine Color Straw Urine Clarity Clear Urine pH 7.0 Urine Specific [place] <=1.005 Urine Protein Negative mg/dL (NEG-TRACE) Urine Glucose (UA) Negative mg/dL (NEG) Urine Ketones (Stick) Negative mg/dL (NEG) Urine Blood Trace (NEG) Urine Nitrite Negative (NEG) Urine Bilirubin Negative (NEG) Urine Urobilinogen Dipstick 0.2 mg/dL (0.2 mg/dL) Urine Leukocyte Esterase Negative (NEG) Urine RBC Rare /HPF (0-2) Urine WBC 0 /HPF (0-4) Urine Squamous Epithelial Cells Occ /LPF Urine Bacteria 0 /HPF (0-FEW) Test 04/12/18 03:25 04/12/18 07:38 White Blood Count 4.0 x10^3/uL (4.0-11.0) Red Blood Count 4.37 x10^6/uL (3.50-5.40) Hemoglobin 12.3 g/dL (12.0-15.5) Hematocrit 38.2 % (36.0-47.0) Mean Corpuscular Volume 88 fL (79-100) Mean Corpuscular Hemoglobin 28 pg (25-35) Mean Corpuscular Hemoglobin Concent 32 g/dL (31-37) Red Cell Distribution Width 14.3 % (11.5-14.5) Platelet Count 283 x10^3/uL (140-400) Neutrophils (%) (Auto) 74 % (31-73) Lymphocytes (%) (Auto) 23 % (24-48) Monocytes (%) (Auto) 3 % (0-9) Eosinophils (%) (Auto) 0 % (0-3) Basophils (%) (Auto) 0 % (0-3) Neutrophils # (Auto) 3.0 x10^3uL (1.8-7.7) Lymphocytes # (Auto) 0.9 x10^3/uL (1.0-4.8) Monocytes # (Auto) 0.1 x10^3/uL (0.0-1.1) Eosinophils # (Auto) 0.0 x10^3/uL (0.0-0.7) Basophils # (Auto) 0.0 x10^3/uL (0.0-0.2) Sodium Level 143 mmol/L (136-145) Potassium Level 4.0 mmol/L (3.5-5.1) Chloride Level 108 mmol/L (98-107) Carbon Dioxide Level 24 mmol/L (21-32) Anion Gap 11 (6-14) Blood Urea Nitrogen 8 mg/dL (7-20) Creatinine 0.9 mg/dL (0.6-1.0) Estimated GFR (Cockcroft-Gault) 77.5 Glucose Level 199 mg/dL (70-99) Calcium Level 8.5 mg/dL (8.5-10.1) Glucose (Fingerstick) 168 mg/dL (70-99) Laboratory Tests Test 04/11/18 18:25 04/11/18 18:40 04/11/18 22:53 04/12/18 02:45 Influenza Type A Antigen Negative (NEGATIVE) Influenza Type B Antigen Negative (NEGATIVE) White Blood Count 5.4 x10^3/uL (4.0-11.0) Red Blood Count 4.33 x10^6/uL (3.50-5.40) Hemoglobin 12.2 g/dL (12.0-15.5) Hematocrit 37.9 % (36.0-47.0) Mean Corpuscular Volume 88 fL (79-100) Mean Corpuscular Hemoglobin 28 pg (25-35) Mean Corpuscular Hemoglobin Concent 32 g/dL (31-37) Red Cell Distribution Width 14.3 % (11.5-14.5) Platelet Count 270 x10^3/uL (140-400) Neutrophils (%) (Auto) 53 % (31-73) Lymphocytes (%) (Auto) 35 % (24-48) Monocytes (%) (Auto) 11 % (0-9) Eosinophils (%) (Auto) 0 % (0-3) Basophils (%) (Auto) 0 % (0-3) Neutrophils # (Auto) 2.9 x10^3uL (1.8-7.7) Lymphocytes # (Auto) 1.9 x10^3/uL (1.0-4.8) Monocytes # (Auto) 0.6 x10^3/uL (0.0-1.1) Eosinophils # (Auto) 0.0 x10^3/uL (0.0-0.7) Basophils # (Auto) 0.0 x10^3/uL (0.0-0.2) Sodium Level 143 mmol/L (136-145) Potassium Level 4.1 mmol/L (3.5-5.1) Chloride Level 106 mmol/L (98-107) Carbon Dioxide Level 25 mmol/L (21-32) Anion Gap 12 (6-14) Blood Urea Nitrogen 8 mg/dL (7-20) Creatinine 0.9 mg/dL (0.6-1.0) Estimated GFR (Cockcroft-Gault) 77.5 BUN/Creatinine Ratio 9 (6-20) Glucose Level 105 mg/dL (70-99) Calcium Level 8.3 mg/dL (8.5-10.1) Magnesium Level 2.3 mg/dL (1.8-2.4) Total Bilirubin 0.1 mg/dL (0.2-1.0) Aspartate Amino Transf (AST/SGOT) 23 U/L (15-37) Alanine Aminotransferase (ALT/SGPT) 20 U/L (14-59) Alkaline Phosphatase 93 U/L (46-116) Troponin I Quantitative < 0.017 ng/mL (0.000-0.055) Total Protein 7.3 g/dL (6.4-8.2) Albumin 3.2 g/dL (3.4-5.0) Albumin/Globulin Ratio 0.8 (1.0-1.7) Glucose (Fingerstick) 147 mg/dL (70-99) Urine Collection Type Unknown Urine Color Straw Urine Clarity Clear Urine pH 7.0 Urine Specific [place] <=1.005 Urine Protein Negative mg/dL (NEG-TRACE) Urine Glucose (UA) Negative mg/dL (NEG) Urine Ketones (Stick) Negative mg/dL (NEG) Urine Blood Trace (NEG) Urine Nitrite Negative (NEG) Urine Bilirubin Negative (NEG) Urine Urobilinogen Dipstick 0.2 mg/dL (0.2 mg/dL) Urine Leukocyte Esterase Negative (NEG) Urine RBC Rare /HPF (0-2) Urine WBC 0 /HPF (0-4) Urine Squamous Epithelial Cells Occ /LPF Urine Bacteria 0 /HPF (0-FEW) Test 04/12/18 03:25 04/12/18 07:38 White Blood Count 4.0 x10^3/uL (4.0-11.0) Red Blood Count 4.37 x10^6/uL (3.50-5.40) Hemoglobin 12.3 g/dL (12.0-15.5) Hematocrit 38.2 % (36.0-47.0) Mean Corpuscular Volume 88 fL (79-100) Mean Corpuscular Hemoglobin 28 pg (25-35) Mean Corpuscular Hemoglobin Concent 32 g/dL (31-37) Red Cell Distribution Width 14.3 % (11.5-14.5) Platelet Count 283 x10^3/uL (140-400) Neutrophils (%) (Auto) 74 % (31-73) Lymphocytes (%) (Auto) 23 % (24-48) Monocytes (%) (Auto) 3 % (0-9) Eosinophils (%) (Auto) 0 % (0-3) Basophils (%) (Auto) 0 % (0-3) Neutrophils # (Auto) 3.0 x10^3uL (1.8-7.7) Lymphocytes # (Auto) 0.9 x10^3/uL (1.0-4.8) Monocytes # (Auto) 0.1 x10^3/uL (0.0-1.1) Eosinophils # (Auto) 0.0 x10^3/uL (0.0-0.7) Basophils # (Auto) 0.0 x10^3/uL (0.0-0.2) Sodium Level 143 mmol/L (136-145) Potassium Level 4.0 mmol/L (3.5-5.1) Chloride Level 108 mmol/L (98-107) Carbon Dioxide Level 24 mmol/L (21-32) Anion Gap 11 (6-14) Blood Urea Nitrogen 8 mg/dL (7-20) Creatinine 0.9 mg/dL (0.6-1.0) Estimated GFR (Cockcroft-Gault) 77.5 Glucose Level 199 mg/dL (70-99) Calcium Level 8.5 mg/dL (8.5-10.1) Glucose (Fingerstick) 168 mg/dL (70-99) VTE Prophylaxis Ordered VTE Prophylaxis Devices: No VTE Pharmacological Prophylaxi: Yes Assessment/Plan Assessment/Plan Acute COPD exacerbation secondary to acute bronchitis Acute dyspnea secondary to the above Morbid obesity with a BMI of 45 Hypertension fairly controlled Diabetes mellitus type 2 Plan We'll continue doxycycline and Solu-Medrol DuoNeb respiratory treatment Guaifenesin ER for secretion management Resume home medications Reassess in the a.m. DVT prophylaxis with LoveCONNIE Sagastume MD Apr 12, 2018 09:30
[2018-04-12] MEDS: POLYETHYLENE GLYCOL 3350 17 GM PACKET. PO SCH (10:00)
[2018-04-12] MEDS ORDERED: CARVEDILOL 12.5 MG TABLET. PO SCH (10:00)
[2018-04-12] MEDS ORDERED: NAPROXEN 500 MG TABLET PO PRN (10:15)
--- NOTE | 2018-04-12 10:42 | NUR ---
SW following pt for anticipated dc needs. Chart reviewed. Pt lives at home alone and on room air. No SW/DC needs indicated at this time. Will continue to evaluate.
[2018-04-12 11:00] VITALS: BP 163/82
[2018-04-12] MEDS ORDERED: DEXTROSE 50% 25 GM / 50ML DISP.SYRIN. IV PRN (11:00)
--- NOTE | 2018-04-12 11:30 | NUR ---
Spoke with a pharmacy stock clerk from [employer] who faxed a current list of medications. Also verified dosage and frequency of certain medications. MD to review and restart all home medications.
[2018-04-12] MEDS ORDERED: POTASSIUM CHLORIDE 20 MEQ TABLET.ER. PO SCH (12:00)
[2018-04-12] MEDS ORDERED: INSULIN LISPRO 300 UNITS/3 ML INSULN.PEN. SQ SCH (12:00)
[2018-04-12] MEDS ORDERED: IPRATRPIUM/ALBUTEROL 0.5/2.5MG 3 ML NEBU. NEB SCH (12:00)
[2018-04-12] MEDS ORDERED: DEXL60CA2 PO (12:03)
[2018-04-12] MEDS ORDERED: NALO25TA2 PO (12:03)
[2018-04-12] MEDS ORDERED: LEVO50TA5 PO (12:03)
[2018-04-12] MEDS ORDERED: PRAV40TA2 PO (12:03)
[2018-04-12] MEDS ORDERED: LINZESS290 MCG PO (12:03)
[2018-04-12] MEDS ORDERED: SITA1TAB11 PO (12:03)
[2018-04-12] MEDS ORDERED: ONDA4TAB11 PO (12:04)
[2018-04-12] MEDS: ASPIRIN ENTERIC COATED 81 MG TABLET.DR. PO SCH (12:30)
[2018-04-12] MEDS: metFORMIN 500 MG TABLET PO SCH (12:30)
[2018-04-12] MEDS ORDERED: ONDANSETRON ODT 4 MG TAB.RAPDIS. PO PRN (12:30)
[2018-04-12] MEDS: LINAGLIPTIN 5 MG TABLET PO SCH (12:30)
[2018-04-12] MEDS: TORSEMIDE 20 MG TABLET. PO SCH (12:30)
[2018-04-12] MEDS: DOXYCYCLINE HYCLATE 100 MG TABLET PO SCH ×2 (12:32→21:34)
[2018-04-12] MEDS: LOSARTAN POTASSIUM 25 MG TABLET. PO SCH (12:32)
[2018-04-12] MEDS: ENOXAPARIN 40 MG/0.4 ML SYRINGE. SQ SCH ×2 (12:32→21:35)
[2018-04-12] MEDS ORDERED: MESALAMINE 400 MG CAP.DRTAB. PO SCH (14:00)
[2018-04-12 14:27] VITALS: BP 161/68
[2018-04-12] MEDS: methylPREDNISolone SOD SUCC PF 125 MG/2 ML VIAL. IV SCH ×2 (14:33→21:34)
[2018-04-12] MEDS ORDERED: ALBUTEROL SULFATE 2.5 MG/3 ML NEBU. NEB PRN (15:45)
--- NOTE | 2018-04-12 16:20 | PDOC ---
PULMONARY PROGRESS NOTES Vitals Vital Signs Date Time Temp Pulse Resp B/P (MAP) Pulse Ox O2 Delivery O2 Flow Rate FiO2 04/12/18 14:27 98.2 87 18 161/68 (99) 94 Room Air 98.2 Labs Laboratory Tests Test 04/11/18 18:25 04/11/18 18:40 04/11/18 22:53 04/12/18 02:45 Influenza Type A Antigen Negative (NEGATIVE) Influenza Type B Antigen Negative (NEGATIVE) White Blood Count 5.4 x10^3/uL (4.0-11.0) Red Blood Count 4.33 x10^6/uL (3.50-5.40) Hemoglobin 12.2 g/dL (12.0-15.5) Hematocrit 37.9 % (36.0-47.0) Mean Corpuscular Volume 88 fL (79-100) Mean Corpuscular Hemoglobin 28 pg (25-35) Mean Corpuscular Hemoglobin Concent 32 g/dL (31-37) Red Cell Distribution Width 14.3 % (11.5-14.5) Platelet Count 270 x10^3/uL (140-400) Neutrophils (%) (Auto) 53 % (31-73) Lymphocytes (%) (Auto) 35 % (24-48) Monocytes (%) (Auto) 11 % (0-9) Eosinophils (%) (Auto) 0 % (0-3) Basophils (%) (Auto) 0 % (0-3) Neutrophils # (Auto) 2.9 x10^3uL (1.8-7.7) Lymphocytes # (Auto) 1.9 x10^3/uL (1.0-4.8) Monocytes # (Auto) 0.6 x10^3/uL (0.0-1.1) Eosinophils # (Auto) 0.0 x10^3/uL (0.0-0.7) Basophils # (Auto) 0.0 x10^3/uL (0.0-0.2) Sodium Level 143 mmol/L (136-145) Potassium Level 4.1 mmol/L (3.5-5.1) Chloride Level 106 mmol/L (98-107) Carbon Dioxide Level 25 mmol/L (21-32) Anion Gap 12 (6-14) Blood Urea Nitrogen 8 mg/dL (7-20) Creatinine 0.9 mg/dL (0.6-1.0) Estimated GFR (Cockcroft-Gault) 77.5 BUN/Creatinine Ratio 9 (6-20) Glucose Level 105 mg/dL (70-99) Calcium Level 8.3 mg/dL (8.5-10.1) Magnesium Level 2.3 mg/dL (1.8-2.4) Total Bilirubin 0.1 mg/dL (0.2-1.0) Aspartate Amino Transf (AST/SGOT) 23 U/L (15-37) Alanine Aminotransferase (ALT/SGPT) 20 U/L (14-59) Alkaline Phosphatase 93 U/L (46-116) Troponin I Quantitative < 0.017 ng/mL (0.000-0.055) Total Protein 7.3 g/dL (6.4-8.2) Albumin 3.2 g/dL (3.4-5.0) Albumin/Globulin Ratio 0.8 (1.0-1.7) Glucose (Fingerstick) 147 mg/dL (70-99) Urine Collection Type Unknown Urine Color Straw Urine Clarity Clear Urine pH 7.0 Urine Specific [place] <=1.005 Urine Protein Negative mg/dL (NEG-TRACE) Urine Glucose (UA) Negative mg/dL (NEG) Urine Ketones (Stick) Negative mg/dL (NEG) Urine Blood Trace (NEG) Urine Nitrite Negative (NEG) Urine Bilirubin Negative (NEG) Urine Urobilinogen Dipstick 0.2 mg/dL (0.2 mg/dL) Urine Leukocyte Esterase Negative (NEG) Urine RBC Rare /HPF (0-2) Urine WBC 0 /HPF (0-4) Urine Squamous Epithelial Cells Occ /LPF Urine Bacteria 0 /HPF (0-FEW) Test 04/12/18 03:25 04/12/18 07:38 04/12/18 11:21 White Blood Count 4.0 x10^3/uL (4.0-11.0) Red Blood Count 4.37 x10^6/uL (3.50-5.40) Hemoglobin 12.3 g/dL (12.0-15.5) Hematocrit 38.2 % (36.0-47.0) Mean Corpuscular Volume 88 fL (79-100) Mean Corpuscular Hemoglobin 28 pg (25-35) Mean Corpuscular Hemoglobin Concent 32 g/dL (31-37) Red Cell Distribution Width 14.3 % (11.5-14.5) Platelet Count 283 x10^3/uL (140-400) Neutrophils (%) (Auto) 74 % (31-73) Lymphocytes (%) (Auto) 23 % (24-48) Monocytes (%) (Auto) 3 % (0-9) Eosinophils (%) (Auto) 0 % (0-3) Basophils (%) (Auto) 0 % (0-3) Neutrophils # (Auto) 3.0 x10^3uL (1.8-7.7) Lymphocytes # (Auto) 0.9 x10^3/uL (1.0-4.8) Monocytes # (Auto) 0.1 x10^3/uL (0.0-1.1) Eosinophils # (Auto) 0.0 x10^3/uL (0.0-0.7) Basophils # (Auto) 0.0 x10^3/uL (0.0-0.2) Sodium Level 143 mmol/L (136-145) Potassium Level 4.0 mmol/L (3.5-5.1) Chloride Level 108 mmol/L (98-107) Carbon Dioxide Level 24 mmol/L (21-32) Anion Gap 11 (6-14) Blood Urea Nitrogen 8 mg/dL (7-20) Creatinine 0.9 mg/dL (0.6-1.0) Estimated GFR (Cockcroft-Gault) 77.5 Glucose Level 199 mg/dL (70-99) Calcium Level 8.5 mg/dL (8.5-10.1) Glucose (Fingerstick) 168 mg/dL (70-99) 160 mg/dL (70-99) Laboratory Tests Test 04/11/18 18:25 04/11/18 18:40 04/11/18 22:53 04/12/18 02:45 Influenza Type A Antigen Negative (NEGATIVE) Influenza Type B Antigen Negative (NEGATIVE) White Blood Count 5.4 x10^3/uL (4.0-11.0) Red Blood Count 4.33 x10^6/uL (3.50-5.40) Hemoglobin 12.2 g/dL (12.0-15.5) Hematocrit 37.9 % (36.0-47.0) Mean Corpuscular Volume 88 fL (79-100) Mean Corpuscular Hemoglobin 28 pg (25-35) Mean Corpuscular Hemoglobin Concent 32 g/dL (31-37) Red Cell Distribution Width 14.3 % (11.5-14.5) Platelet Count 270 x10^3/uL (140-400) Neutrophils (%) (Auto) 53 % (31-73) Lymphocytes (%) (Auto) 35 % (24-48) Monocytes (%) (Auto) 11 % (0-9) Eosinophils (%) (Auto) 0 % (0-3) Basophils (%) (Auto) 0 % (0-3) Neutrophils # (Auto) 2.9 x10^3uL (1.8-7.7) Lymphocytes # (Auto) 1.9 x10^3/uL (1.0-4.8) Monocytes # (Auto) 0.6 x10^3/uL (0.0-1.1) Eosinophils # (Auto) 0.0 x10^3/uL (0.0-0.7) Basophils # (Auto) 0.0 x10^3/uL (0.0-0.2) Sodium Level 143 mmol/L (136-145) Potassium Level 4.1 mmol/L (3.5-5.1) Chloride Level 106 mmol/L (98-107) Carbon Dioxide Level 25 mmol/L (21-32) Anion Gap 12 (6-14) Blood Urea Nitrogen 8 mg/dL (7-20) Creatinine 0.9 mg/dL (0.6-1.0) Estimated GFR (Cockcroft-Gault) 77.5 BUN/Creatinine Ratio 9 (6-20) Glucose Level 105 mg/dL (70-99) Calcium Level 8.3 mg/dL (8.5-10.1) Magnesium Level 2.3 mg/dL (1.8-2.4) Total Bilirubin 0.1 mg/dL (0.2-1.0) Aspartate Amino Transf (AST/SGOT) 23 U/L (15-37) Alanine Aminotransferase (ALT/SGPT) 20 U/L (14-59) Alkaline Phosphatase 93 U/L (46-116) Troponin I Quantitative < 0.017 ng/mL (0.000-0.055) Total Protein 7.3 g/dL (6.4-8.2) Albumin 3.2 g/dL (3.4-5.0) Albumin/Globulin Ratio 0.8 (1.0-1.7) Glucose (Fingerstick) 147 mg/dL (70-99) Urine Collection Type Unknown Urine Color Straw Urine Clarity Clear Urine pH 7.0 Urine Specific [place] <=1.005 Urine Protein Negative mg/dL (NEG-TRACE) Urine Glucose (UA) Negative mg/dL (NEG) Urine Ketones (Stick) Negative mg/dL (NEG) Urine Blood Trace (NEG) Urine Nitrite Negative (NEG) Urine Bilirubin Negative (NEG) Urine Urobilinogen Dipstick 0.2 mg/dL (0.2 mg/dL) Urine Leukocyte Esterase Negative (NEG) Urine RBC Rare /HPF (0-2) Urine WBC 0 /HPF (0-4) Urine Squamous Epithelial Cells Occ /LPF Urine Bacteria 0 /HPF (0-FEW) Test 04/12/18 03:25 04/12/18 07:38 04/12/18 11:21 White Blood Count 4.0 x10^3/uL (4.0-11.0) Red Blood Count 4.37 x10^6/uL (3.50-5.40) Hemoglobin 12.3 g/dL (12.0-15.5) Hematocrit 38.2 % (36.0-47.0) Mean Corpuscular Volume 88 fL (79-100) Mean Corpuscular Hemoglobin 28 pg (25-35) Mean Corpuscular Hemoglobin Concent 32 g/dL (31-37) Red Cell Distribution Width 14.3 % (11.5-14.5) Platelet Count 283 x10^3/uL (140-400) Neutrophils (%) (Auto) 74 % (31-73) Lymphocytes (%) (Auto) 23 % (24-48) Monocytes (%) (Auto) 3 % (0-9) Eosinophils (%) (Auto) 0 % (0-3) Basophils (%) (Auto) 0 % (0-3) Neutrophils # (Auto) 3.0 x10^3uL (1.8-7.7) Lymphocytes # (Auto) 0.9 x10^3/uL (1.0-4.8) Monocytes # (Auto) 0.1 x10^3/uL (0.0-1.1) Eosinophils # (Auto) 0.0 x10^3/uL (0.0-0.7) Basophils # (Auto) 0.0 x10^3/uL (0.0-0.2) Sodium Level 143 mmol/L (136-145) Potassium Level 4.0 mmol/L (3.5-5.1) Chloride Level 108 mmol/L (98-107) Carbon Dioxide Level 24 mmol/L (21-32) Anion Gap 11 (6-14) Blood Urea Nitrogen 8 mg/dL (7-20) Creatinine 0.9 mg/dL (0.6-1.0) Estimated GFR (Cockcroft-Gault) 77.5 Glucose Level 199 mg/dL (70-99) Calcium Level 8.5 mg/dL (8.5-10.1) Glucose (Fingerstick) 168 mg/dL (70-99) 160 mg/dL (70-99) Medications Active Scripts Medications Dose Route/Sig Max Daily Dose Days Date Category Ondansetron Hcl 4 Mg Tablet 1 Tab PO PRN Q6HRS 04/12/18 Reported Movantik (Naloxegol Oxalate) 25 Mg Tablet 25 Mg PO DAILY 04/12/18 Reported Dexilant (Dexlansoprazole) 60 Mg mp 60 Mg PO DAILY 04/12/18 Reported Janumet 50-1,000 Mg Tablet (Sitagliptin Phos/Metformin Hcl) 1 Each Tablet 1 Each PO DAILY 04/12/18 Reported Linzess (Linaclotide) 290 Mcg Capsule 290 Mcg PO DAILY07 04/12/18 Reported Levothyroxine Sodium 50 Mcg Tablet 1 Tab PO DAILY 04/12/18 Reported Pravastatin Sodium 40 Mg Tablet 1 Tab PO QHS 04/12/18 Reported Tramadol Hcl 50 Mg Tablet 50 Mg PO Q6HRS PRN 10/06/17 Reported Torsemide 20 Mg Tablet 40 Mg PO DAILY 10/06/17 Reported Polyethylene Glycol 3350 2,500 Gm Powder 17 Gm PO DAILY 10/06/17 Reported Naproxen 500 Mg Tablet 1 Tab PO BID PRN 10/06/17 Reported Losartan Potassium (Losartan Potassium) 25 Mg Tablet 25 Mg PO DAILY 10/06/17 Reported Welchol (Colesevelam Hcl) 3.75 Gm Powd.pack 1 Packet PO DAILY 10/06/17 Reported Aspir 81 (Aspirin) 81 Mg Tablet. 81 Mg PO DAILY 01/19/13 Reported Impression . DICTATED THANKS AGREE WITH CURRENT RX MARQUIS DONOVAN MD Apr 12, 2018 16:20
[2018-04-12 19:10] VITALS: BP 144/60
[2018-04-12] MEDS ORDERED: CETIRIZINE HCL 10 MG TABLET. PO SCH (21:00)
[2018-04-12] MEDS ORDERED: ATORVASTATIN CALCIUM 10 MG TABLET. PO SCH ×2 (21:00)
[2018-04-12 23:15] VITALS: BP 130/73
--- NOTE | 2018-04-13 00:50 | CONS ---
DATE OF CONSULTATION: 04/12/2018 ATTENDING PHYSICIAN: Dr. Loo. REASON FOR CONSULTATION: The patient seen in pulmonary consultation at the request of Dr. Loo for increasing shortness of air. HISTORY OF PRESENT ILLNESS: The patient is a 57-year-old that smokes, has underlying COPD; prior history of asthma which she outgrew, does not normally use metered dose inhalers, presented with increasing shortness of breath, flu-like symptoms, cough productive of yellow sputum. No hemoptysis. No fever, chills or night sweats. She is up-to-date on her flu vaccination. She has not received a pneumonia vaccination. She does not utilize oxygen at home and no metered dose inhalers. PAST MEDICAL AND PAST SURGICAL HISTORY: Hypertension diabetes. No surgeries in the past. ALLERGIES: PENICILLIN, SULFA, CEPHALEXIN, CODEINE, AND LATEX. REVIEW OF SYSTEMS: As indicated above, otherwise, a 10-point system was reviewed and negative. CURRENT MEDICATIONS: List was reviewed. SOCIAL HISTORY: She smokes approximately half a pack of cigarettes a day. PHYSICAL EXAMINATION: GENERAL: No respiratory distress. VITAL SIGNS: Stable. O2 saturation was greater than 92%. HEENT: Eyes, the sclerae were nonicteric. NECK: Jugular venous distention was not elevated. No lymphadenopathy. CHEST: Full expansion. LUNGS: Coarse breath sounds with no wheezes. CARDIOVASCULAR: Regular rate and rhythm with S1, S2, no S3. ABDOMEN: Soft, obese. EXTREMITIES: No clubbing, cyanosis or edema. NEUROLOGIC: The patient was awake, alert, following commands. A detailed neuro exam was not performed. LABORATORY DATA: Reviewed. Chest x-ray was normal. White count was normal. Serology for influenza was negative. Electrolytes were noted. IMPRESSION: 1. Acute exacerbation of chronic obstructive pulmonary disease. 2. Morbid obesity. 3. Acute nonspecific bronchitis. 4. Tobacco dependence. PLAN: 1. Steroids. 2. Doxycycline. 3. The patient instructed on the importance of discontinuing tobacco. 4. Nebulized treatments. I do appreciate the privilege in sharing in the patient's care. MARQUIS DONOVAN MD DR: FRANSICO/leo JOB#: [id number] / [id number]
[2018-04-13 03:15] VITALS: BP 159/72
[2018-04-13] MEDS ORDERED: LEVOTHYROXINE 50 MCG TABLET PO SCH (06:00)
[2018-04-13] MEDS: methylPREDNISolone SOD SUCC PF 125 MG/2 ML VIAL. IV SCH (06:02)
[2018-04-13 07:00] VITALS: BP 148/78
[2018-04-13] MEDS ORDERED: NON FORMULARY ITEM (Linaclotide (Linzess) 290 MCG) PO SCH ×2 (07:00→09:00)
[2018-04-13] MEDS ORDERED: PANTOPRAZOLE 40 MG TABLET.DR. PO SCH (07:30)
[2018-04-13] MEDS: IPRATRPIUM/ALBUTEROL 0.5/2.5MG 3 ML NEBU. NEB SCH ×2 (07:48→12:01)
[2018-04-13] MEDS: POLYETHYLENE GLYCOL 3350 17 GM PACKET. PO SCH (09:00)
[2018-04-13] MEDS ORDERED: NON FORMULARY ITEM (Naloxegol Oxalate (Movantik) 25 MG) PO SCH (09:00)
[2018-04-13] MEDS ORDERED: COLESEVELAM HCL PO SCH (09:00)
[2018-04-13] MEDS: LOSARTAN POTASSIUM 25 MG TABLET. PO SCH (09:43)
[2018-04-13] MEDS: ASPIRIN ENTERIC COATED 81 MG TABLET.DR. PO SCH (09:43)
[2018-04-13] MEDS: LINAGLIPTIN 5 MG TABLET PO SCH (09:44)
[2018-04-13] MEDS: metFORMIN 500 MG TABLET PO SCH (09:44)
[2018-04-13] MEDS: TORSEMIDE 20 MG TABLET. PO SCH (09:45)
[2018-04-13] MEDS: ENOXAPARIN 40 MG/0.4 ML SYRINGE. SQ SCH (09:46)
[2018-04-13] MEDS: DOXYCYCLINE HYCLATE 100 MG TABLET PO SCH (09:48)
--- NOTE | 2018-04-13 10:14 | PDOC ---
PULMONARY PROGRESS NOTES Subjective patient feels better today, no wheezing no increase in SOA Vitals Vital Signs Date Time Temp Pulse Resp B/P (MAP) Pulse Ox O2 Delivery O2 Flow Rate FiO2 04/13/18 09:43 84 148/78 04/13/18 07:49 96 Room Air 04/13/18 07:00 99.0 18 99.0 ROS: No Nausea, No Chest Pain, No Abdominal Pain, No Increase Cough General: Alert Lungs: Clear Cardiovascular: S1, S2 Abdomen: Soft Neuro Exam: Alert Extremities: No Edema Skin: Warm Labs Laboratory Tests Test 04/11/18 18:25 04/11/18 18:40 04/11/18 22:53 04/12/18 02:45 Influenza Type A Antigen Negative (NEGATIVE) Influenza Type B Antigen Negative (NEGATIVE) White Blood Count 5.4 x10^3/uL (4.0-11.0) Red Blood Count 4.33 x10^6/uL (3.50-5.40) Hemoglobin 12.2 g/dL (12.0-15.5) Hematocrit 37.9 % (36.0-47.0) Mean Corpuscular Volume 88 fL (79-100) Mean Corpuscular Hemoglobin 28 pg (25-35) Mean Corpuscular Hemoglobin Concent 32 g/dL (31-37) Red Cell Distribution Width 14.3 % (11.5-14.5) Platelet Count 270 x10^3/uL (140-400) Neutrophils (%) (Auto) 53 % (31-73) Lymphocytes (%) (Auto) 35 % (24-48) Monocytes (%) (Auto) 11 % (0-9) Eosinophils (%) (Auto) 0 % (0-3) Basophils (%) (Auto) 0 % (0-3) Neutrophils # (Auto) 2.9 x10^3uL (1.8-7.7) Lymphocytes # (Auto) 1.9 x10^3/uL (1.0-4.8) Monocytes # (Auto) 0.6 x10^3/uL (0.0-1.1) Eosinophils # (Auto) 0.0 x10^3/uL (0.0-0.7) Basophils # (Auto) 0.0 x10^3/uL (0.0-0.2) Sodium Level 143 mmol/L (136-145) Potassium Level 4.1 mmol/L (3.5-5.1) Chloride Level 106 mmol/L (98-107) Carbon Dioxide Level 25 mmol/L (21-32) Anion Gap 12 (6-14) Blood Urea Nitrogen 8 mg/dL (7-20) Creatinine 0.9 mg/dL (0.6-1.0) Estimated GFR (Cockcroft-Gault) 77.5 BUN/Creatinine Ratio 9 (6-20) Glucose Level 105 mg/dL (70-99) Calcium Level 8.3 mg/dL (8.5-10.1) Magnesium Level 2.3 mg/dL (1.8-2.4) Total Bilirubin 0.1 mg/dL (0.2-1.0) Aspartate Amino Transf (AST/SGOT) 23 U/L (15-37) Alanine Aminotransferase (ALT/SGPT) 20 U/L (14-59) Alkaline Phosphatase 93 U/L (46-116) Troponin I Quantitative < 0.017 ng/mL (0.000-0.055) Total Protein 7.3 g/dL (6.4-8.2) Albumin 3.2 g/dL (3.4-5.0) Albumin/Globulin Ratio 0.8 (1.0-1.7) Glucose (Fingerstick) 147 mg/dL (70-99) Urine Collection Type Unknown Urine Color Straw Urine Clarity Clear Urine pH 7.0 Urine Specific [place] <=1.005 Urine Protein Negative mg/dL (NEG-TRACE) Urine Glucose (UA) Negative mg/dL (NEG) Urine Ketones (Stick) Negative mg/dL (NEG) Urine Blood Trace (NEG) Urine Nitrite Negative (NEG) Urine Bilirubin Negative (NEG) Urine Urobilinogen Dipstick 0.2 mg/dL (0.2 mg/dL) Urine Leukocyte Esterase Negative (NEG) Urine RBC Rare /HPF (0-2) Urine WBC 0 /HPF (0-4) Urine Squamous Epithelial Cells Occ /LPF Urine Bacteria 0 /HPF (0-FEW) Test 04/12/18 03:25 04/12/18 07:38 04/12/18 11:21 04/12/18 16:53 White Blood Count 4.0 x10^3/uL (4.0-11.0) Red Blood Count 4.37 x10^6/uL (3.50-5.40) Hemoglobin 12.3 g/dL (12.0-15.5) Hematocrit 38.2 % (36.0-47.0) Mean Corpuscular Volume 88 fL (79-100) Mean Corpuscular Hemoglobin 28 pg (25-35) Mean Corpuscular Hemoglobin Concent 32 g/dL (31-37) Red Cell Distribution Width 14.3 % (11.5-14.5) Platelet Count 283 x10^3/uL (140-400) Neutrophils (%) (Auto) 74 % (31-73) Lymphocytes (%) (Auto) 23 % (24-48) Monocytes (%) (Auto) 3 % (0-9) Eosinophils (%) (Auto) 0 % (0-3) Basophils (%) (Auto) 0 % (0-3) Neutrophils # (Auto) 3.0 x10^3uL (1.8-7.7) Lymphocytes # (Auto) 0.9 x10^3/uL (1.0-4.8) Monocytes # (Auto) 0.1 x10^3/uL (0.0-1.1) Eosinophils # (Auto) 0.0 x10^3/uL (0.0-0.7) Basophils # (Auto) 0.0 x10^3/uL (0.0-0.2) Sodium Level 143 mmol/L (136-145) Potassium Level 4.0 mmol/L (3.5-5.1) Chloride Level 108 mmol/L (98-107) Carbon Dioxide Level 24 mmol/L (21-32) Anion Gap 11 (6-14) Blood Urea Nitrogen 8 mg/dL (7-20) Creatinine 0.9 mg/dL (0.6-1.0) Estimated GFR (Cockcroft-Gault) 77.5 Glucose Level 199 mg/dL (70-99) Calcium Level 8.5 mg/dL (8.5-10.1) Glucose (Fingerstick) 168 mg/dL (70-99) 160 mg/dL (70-99) 114 mg/dL (70-99) Test 04/12/18 20:55 04/13/18 05:43 04/13/18 07:19 Glucose (Fingerstick) 157 mg/dL (70-99) 165 mg/dL (70-99) 169 mg/dL (70-99) Laboratory Tests Test 04/12/18 11:21 04/12/18 16:53 04/12/18 20:55 04/13/18 05:43 Glucose (Fingerstick) 160 mg/dL (70-99) 114 mg/dL (70-99) 157 mg/dL (70-99) 165 mg/dL (70-99) Test 04/13/18 07:19 Glucose (Fingerstick) 169 mg/dL (70-99) Medications Active Scripts Medications Dose Route/Sig Max Daily Dose Days Date Category Ondansetron Hcl 4 Mg Tablet 1 Tab PO PRN Q6HRS 04/12/18 Reported Movantik (Naloxegol Oxalate) 25 Mg Tablet 25 Mg PO DAILY 04/12/18 Reported Dexilant (Dexlansoprazole) 60 Mg Cap.mp 60 Mg PO DAILY 04/12/18 Reported Janumet 50-1,000 Mg Tablet (Sitagliptin Phos/Metformin Hcl) 1 Each Tablet 1 Each PO DAILY 04/12/18 Reported Linzess (Linaclotide) 290 Mcg Capsule 290 Mcg PO DAILY07 04/12/18 Reported Levothyroxine Sodium 50 Mcg Tablet 1 Tab PO DAILY 04/12/18 Reported Pravastatin Sodium 40 Mg Tablet 1 Tab PO QHS 04/12/18 Reported Tramadol Hcl 50 Mg Tablet 50 Mg PO Q6HRS PRN 10/06/17 Reported Torsemide 20 Mg Tablet 40 Mg PO DAILY 10/06/17 Reported Polyethylene Glycol 3350 2,500 Gm Powder 17 Gm PO DAILY 10/06/17 Reported Naproxen 500 Mg Tablet 1 Tab PO BID PRN 10/06/17 Reported Losartan Potassium (Losartan Potassium) 25 Mg Tablet 25 Mg PO DAILY 10/06/17 Reported Welchol (Colesevelam Hcl) 3.75 Gm Powd.pack 1 Packet PO DAILY 10/06/17 Reported Aspir 81 (Aspirin) 81 Mg Tablet. 81 Mg PO DAILY 01/19/13 Reported Impression . IMPRESSION: 1. Acute exacerbation of chronic obstructive pulmonary disease. 2. Morbid obesity. 3. Acute nonspecific bronchitis. 4. Tobacco dependence. Plan . OK to discharge home today prednisone, doxycycline, nebulizer treatments Follow up at [facility] MARQUIS Wagoner MD Apr 13, 2018 10:14
[2018-04-13 11:00] VITALS: BP 141/78
--- NOTE | 2018-04-13 11:54 | NUR ---
SW following. Discussed with RN, pt is from home alone. RN reported pt still wheezing. No SW needs at this time. SW will continue to follow.
[2018-04-13] MEDS ORDERED: DOXY100T PO (12:33)
[2018-04-13] MEDS ORDERED: GUAI600T47 PO (12:33)
[2018-04-13] MEDS ORDERED: PRED20TA PO (12:33)
[2018-04-13] MEDS ORDERED: IPRA3AMP29 NEB (12:33)
--- NOTE | 2018-04-13 14:55 | NUR ---
[facility] following. RN contacted [facility] to advise pt needing a nebulizer and medication. [facility] faxed script to [facility] (fax:[phone]). [facility] will deliver to pt's home. RN notified. Pt has discharged.
--- NOTE | 2018-04-13 15:07 | PDOC3 ---
Discharge Summary Visit Information Date of Admission: Apr 12, 2018 Date of Discharge: Apr 13, 2018 Admitting Diagnosis: acute bronchitis Final Diagnosis Acute COPD exacerbation secondary to acute bronchitis Acute dyspnea secondary to the above Morbid obesity with a BMI of 45 Hypertension fairly controlled Diabetes mellitus type 2 Brief Hospital Course Allergies Allergies Coded Allergies Type Severity Reaction Last Updated Verified Penicillins Allergy Severe short of air 04/11/18 Yes Sulfa (Sulfonamide Antibiotics) Allergy Severe short of air 04/11/18 Yes cephalexin Allergy Severe short of air 04/11/18 Yes codeine Allergy Severe short of air 04/11/18 Yes latex Allergy Intermediate rash 04/11/18 Yes Vital Signs Vital Signs Date Time Temp Pulse Resp B/P (MAP) Pulse Ox O2 Delivery O2 Flow Rate FiO2 04/13/18 12:03 97 Room Air 04/13/18 11:00 99.2 81 18 141/78 (99) 99.2 Lab Results Laboratory Tests Test 04/11/18 18:25 04/11/18 18:40 04/11/18 22:53 04/12/18 02:45 Influenza Type A Antigen Negative (NEGATIVE) Influenza Type B Antigen Negative (NEGATIVE) White Blood Count 5.4 x10^3/uL (4.0-11.0) Red Blood Count 4.33 x10^6/uL (3.50-5.40) Hemoglobin 12.2 g/dL (12.0-15.5) Hematocrit 37.9 % (36.0-47.0) Mean Corpuscular Volume 88 fL (79-100) Mean Corpuscular Hemoglobin 28 pg (25-35) Mean Corpuscular Hemoglobin Concent 32 g/dL (31-37) Red Cell Distribution Width 14.3 % (11.5-14.5) Platelet Count 270 x10^3/uL (140-400) Neutrophils (%) (Auto) 53 % (31-73) Lymphocytes (%) (Auto) 35 % (24-48) Monocytes (%) (Auto) 11 % (0-9) Eosinophils (%) (Auto) 0 % (0-3) Basophils (%) (Auto) 0 % (0-3) Neutrophils # (Auto) 2.9 x10^3uL (1.8-7.7) Lymphocytes # (Auto) 1.9 x10^3/uL (1.0-4.8) Monocytes # (Auto) 0.6 x10^3/uL (0.0-1.1) Eosinophils # (Auto) 0.0 x10^3/uL (0.0-0.7) Basophils # (Auto) 0.0 x10^3/uL (0.0-0.2) Sodium Level 143 mmol/L (136-145) Potassium Level 4.1 mmol/L (3.5-5.1) Chloride Level 106 mmol/L (98-107) Carbon Dioxide Level 25 mmol/L (21-32) Anion Gap 12 (6-14) Blood Urea Nitrogen 8 mg/dL (7-20) Creatinine 0.9 mg/dL (0.6-1.0) Estimated GFR (Cockcroft-Gault) 77.5 BUN/Creatinine Ratio 9 (6-20) Glucose Level 105 mg/dL (70-99) Calcium Level 8.3 mg/dL (8.5-10.1) Magnesium Level 2.3 mg/dL (1.8-2.4) Total Bilirubin 0.1 mg/dL (0.2-1.0) Aspartate Amino Transf (AST/SGOT) 23 U/L (15-37) Alanine Aminotransferase (ALT/SGPT) 20 U/L (14-59) Alkaline Phosphatase 93 U/L (46-116) Troponin I Quantitative < 0.017 ng/mL (0.000-0.055) Total Protein 7.3 g/dL (6.4-8.2) Albumin 3.2 g/dL (3.4-5.0) Albumin/Globulin Ratio 0.8 (1.0-1.7) Glucose (Fingerstick) 147 mg/dL (70-99) Urine Collection Type Unknown Urine Color Straw Urine Clarity Clear Urine pH 7.0 Urine Specific [place] <=1.005 Urine Protein Negative mg/dL (NEG-TRACE) Urine Glucose (UA) Negative mg/dL (NEG) Urine Ketones (Stick) Negative mg/dL (NEG) Urine Blood Trace (NEG) Urine Nitrite Negative (NEG) Urine Bilirubin Negative (NEG) Urine Urobilinogen Dipstick 0.2 mg/dL (0.2 mg/dL) Urine Leukocyte Esterase Negative (NEG) Urine RBC Rare /HPF (0-2) Urine WBC 0 /HPF (0-4) Urine Squamous Epithelial Cells Occ /LPF Urine Bacteria 0 /HPF (0-FEW) Test 04/12/18 03:25 04/12/18 07:38 04/12/18 11:21 04/12/18 16:53 White Blood Count 4.0 x10^3/uL (4.0-11.0) Red Blood Count 4.37 x10^6/uL (3.50-5.40) Hemoglobin 12.3 g/dL (12.0-15.5) Hematocrit 38.2 % (36.0-47.0) Mean Corpuscular Volume 88 fL (79-100) Mean Corpuscular Hemoglobin 28 pg (25-35) Mean Corpuscular Hemoglobin Concent 32 g/dL (31-37) Red Cell Distribution Width 14.3 % (11.5-14.5) Platelet Count 283 x10^3/uL (140-400) Neutrophils (%) (Auto) 74 % (31-73) Lymphocytes (%) (Auto) 23 % (24-48) Monocytes (%) (Auto) 3 % (0-9) Eosinophils (%) (Auto) 0 % (0-3) Basophils (%) (Auto) 0 % (0-3) Neutrophils # (Auto) 3.0 x10^3uL (1.8-7.7) Lymphocytes # (Auto) 0.9 x10^3/uL (1.0-4.8) Monocytes # (Auto) 0.1 x10^3/uL (0.0-1.1) Eosinophils # (Auto) 0.0 x10^3/uL (0.0-0.7) Basophils # (Auto) 0.0 x10^3/uL (0.0-0.2) Sodium Level 143 mmol/L (136-145) Potassium Level 4.0 mmol/L (3.5-5.1) Chloride Level 108 mmol/L (98-107) Carbon Dioxide Level 24 mmol/L (21-32) Anion Gap 11 (6-14) Blood Urea Nitrogen 8 mg/dL (7-20) Creatinine 0.9 mg/dL (0.6-1.0) Estimated GFR (Cockcroft-Gault) 77.5 Glucose Level 199 mg/dL (70-99) Calcium Level 8.5 mg/dL (8.5-10.1) Glucose (Fingerstick) 168 mg/dL (70-99) 160 mg/dL (70-99) 114 mg/dL (70-99) Test 04/12/18 20:55 04/13/18 05:43 04/13/18 07:19 04/13/18 11:35 Glucose (Fingerstick) 157 mg/dL (70-99) 165 mg/dL (70-99) 169 mg/dL (70-99) 184 mg/dL (70-99) Laboratory Tests Test 04/12/18 16:53 04/12/18 20:55 04/13/18 05:43 04/13/18 07:19 Glucose (Fingerstick) 114 mg/dL (70-99) 157 mg/dL (70-99) 165 mg/dL (70-99) 169 mg/dL (70-99) Test 04/13/18 11:35 Glucose (Fingerstick) 184 mg/dL (70-99) Brief Hospital Course Patient is a 57-year-old female with past medical history off hypertension diabetes who is morbidly obese as well who was in her usual state of health until approximately one week prior to her admission when she got in contact 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 1-2 days after this encounter the patient started complaining off generalized malaise cough sputum production no pleurisy has been reported she does refers dyspnea then has progressed to dyspnea on exertion over the last couple days reason why she came to the emergency department for further evaluation. The patient unfortunately did not percent significant improvement from her symptoms indeed the reason why we were asked to admit the patient for further treatment. The patient denies pleurisy she is hemodynamically stable does not have increased work of breathing and is able to finish full sentences. The patient has history of asthma in the past but has never been intubated for it. The patient is an active smoker counseling has been done less than 10 minutes the importance of abstaining from smoking moving forward was discussed with the patient during my encounter. Patient will be treated aggressively with secretion management steroids for the acute inflammatory process and empiric antibiotics doxycycline for acute bronchitis Patient responded very promptly to our therapy and was seen in consultation by pulmonology. The recommendations are greatly appreciated and the patient felt in good spirits to be dismissed home. I have given her extensive counseling regarding the benefits of quitting smoking. She is thinking about quitting smoking fairly soon and I have encouraged to work with her primary care physician noted to devise a plan noted to be successful quitting smoking. The benefits on her health are going to be tremendous she also needs to probably have a sleep study done in the outpatient setting given her BMI of 45 and her increased risk for obstructive sleep apnea. Thank for allowing us care for the patient she will be dismissed in hemodynamically stable condition with doxycycline and prednisone taper for next 5 days Physical exam: Lungs clear to auscultation bilaterally no wheezing or rails were auscultated Cardiovascular S1-S2 regular rhythm slight systolic murmur no radiation to carotids Discharge Information Condition at Discharge: Improved Follow Up: Weeks Disposition/Orders: D/C to Home Scheduled Aspirin (Aspir 81) 81 Mg Tablet., 81 MG PO DAILY, (Reported) Entered as Reported by: EMILIE STALLWORTH on 01/19/13 1145 Last Taken: Unknown Dose on 04/10/18 Last Action: Continued on 04/12/18922 by CONNIE HERNANDEZ MD Colesevelam Hcl (Welchol) 3.75 Gm Powd.pack, 1 PACKET PO DAILY, #90 Ref 1 ( Reported) Entered as Reported by: JESICA BRAGA on 10/06/17 1410 Last Action: Converted on 04/12/18922 by CONNIE HERNANDEZ MD Dexlansoprazole (Dexilant) 60 Mg Cap., 60 MG PO DAILY for GERD, (Reported) Entered as Reported by: HUSSAIN DE ANDA on 04/12/18 1203 Last Taken: Unknown Dose on Unknown Date & Time Last Action: Converted on 04/12/181205 by HUSSAIN DE ANDA Doxycycline Hyclate (Doxycycline Hyclate) 100 Mg Tablet, 100 MG PO BID for copd for 5 Days, #10 Prescribed by: CONNIE HERNANDEZ MD on 04/13/18 1233 Guaifenesin (Mucinex) 600 Mg Tablet.er, 600 MG PO BID for COUGH for 7 Days, #14 Prescribed by: CONNIE HERNANDEZ MD on 04/13/18 1233 Ipratropium/Albuterol Sulfate (Duoneb 0.5-3(2.5) Mg/3 Ml) 3 Ml Ampul.neb, 3 ML NEB Q4HRS W/A for COPD for 30 Days, #150 Prescribed by: CONNIE HERNANDEZ MD on 04/13/181232 Levothyroxine Sodium (Levothyroxine Sodium) 50 Mcg Tablet, 1 TAB PO DAILY for hypothyroidism , #30 Ref 5 (Reported) Entered as Reported by: HUSSAIN DE ANDA on 04/12/181202 Last Taken: Unknown Dose on Unknown Date & Time Last Action: Converted on 04/12/181205 by HUSSAIN DE ANDA Linaclotide (Linzess) 290 Mcg Capsule, 290 MCG PO DAILY07 for IRRITABLE BOWEL, ( Reported) Entered as Reported by: HUSSAIN DE ANDA on 04/12/181202 Last Taken: Unknown Dose on Unknown Date & Time Last Action: Converted on 04/12/181205 by HUSSAIN DE ANDA Losartan Potassium (Losartan Potassium ) 25 Mg Tablet, 25 MG PO DAILY, ( Reported) Entered as Reported by: JESICA BRAGA on 10/06/17 141 Last Taken: Unknown Dose on 04/10/18 Last Action: Continued on 04/12/18922 by CONNIE HERNANDEZ MD Naloxegol Oxalate (Movantik) 25 Mg Tablet, 25 MG PO DAILY for constipation, ( Reported) Entered as Reported by: HUSSAIN DE ANDA on 04/12/181202 Last Taken: Unknown Dose on Unknown Date & Time Last Action: Converted on 04/12/181205 by HUSSAIN DE ANDA Ondansetron Hcl (Ondansetron Hcl) 4 Mg Tablet, 1 TAB PO PRN Q6HRS for nausea, # 10 Ref 1 (Reported) Entered as Reported by: HUSSAIN DE ANDA on 04/12/181203 Last Taken: Unknown Dose on Unknown Date & Time Last Action: Converted on 04/12/181205 by HUSSAIN DE ANDA Polyethylene Glycol 3350 (Polyethylene Glycol 3350) 2,500 Gm Powder, 17 GM PO DAILY, #527 Ref 11 (Reported) Entered as Reported by: JESICA BRAGA on 10/06/170 Last Action: Converted on 04/12/18922 by CONNIE HERNANDEZ MD Pravastatin Sodium (Pravastatin Sodium) 40 Mg Tablet, 1 TAB PO QHS for high cholesterol, #90 Ref 1 (Reported) Entered as Reported by: HUSSAIN DE ANDA on 04/12/181202 Last Taken: UNKNOWN on Unknown Date & Time Last Action: Converted on 1205 by HUSSAIN DE ANDA Prednisone (Prednisone) 20 Mg Tablet, 2 TAB PO DAILY for copd for 4 Days, #8 Prescribed by: CONNIE HERNANDEZ MD on 04/13/181232 Sitagliptin Phos/Metformin Hcl (Janumet 50-1,000 Mg Tablet) 1 Each Tablet, 1 EACH PO DAILY for blood sugar control, (Reported) Entered as Reported by: HUSSAIN DE ANDA on 04/12/181202 Last Taken: Unknown Dose on Unknown Date & Time Last Action: Converted on 04/12/181205 by HUSSAIN DE ANDA Torsemide (Torsemide) 20 Mg Tablet, 40 MG PO DAILY, (Reported) Entered as Reported by: JESICA BRAGA on 10/06/171409 Last Taken: Unknown Dose on 04/10/18 Last Action: Converted on 04/12/18922 by CONNIE HERNANDEZ MD Scheduled PRN Naproxen (Naproxen) 500 Mg Tablet, 1 TAB PO BID PRN for PAIN, #60 Ref 1 ( Reported) Entered as Reported by: JESICA BRAGA on 10/06/171409 Last Action: Converted on 04/12/18922 by CONNIE HERNANDEZ MD Tramadol Hcl (Tramadol Hcl) 50 Mg Tablet, 50 MG PO Q6HRS PRN for PAIN, (Reported ) Entered as Reported by: JESICA BRAGA on 10/06/171409 Last Action: Continued on 04/12/18922 by CONNIE HERNANDEZ MD Discontinued Medications Carvedilol (Carvedilol ) 6.25 Mg Tablet, 12.5 MG PO BID, (Reported) Discontinued Reason: Prescription changed Entered as Reported by: CRISTIAN FOX on 03/31/13 1355 Carvedilol (Carvedilol) 12.5 Mg Tablet, 25 MG PO BID for antiarrhythmic, ( Reported) Entered as Reported by: RACHEL MORALES on 04/12/18216 Last Taken: Unknown Dose on 04/10/181999 Last Action: Discontinued on 1202 by HUSSAIN DE ANDA Levocetirizine Dihydrochloride (Levocetirizine Dihydrochloride) 5 Mg Tablet, 1 TAB PO QHS, #30 Ref 3 (Reported) Entered as Reported by: JESICA BRAGA on 10/06/17 141 Last Action: Discontinued on 04/12/181202 by HUSSAIN DE ANDA Linaclotide (Linzess) 145 Mcg Capsule, 290 MCG PO DAILY, (Reported) Entered as Reported by: CRISTIAN FOX on 03/31/13 1400 Last Action: Discontinued on 04/12/181202 by HUSSAIN DE ANDA Mesalamine (Asacol Hd) 800 Mg Tablet.dr, 800 MG PO TID for antiinflammatory, ( Reported) Entered as Reported by: CRISTIAN FOX on 03/31/13 1400 Last Taken: Unknown Dose on 04/10/18 Last Action: Discontinued on 04/12/181202 by HUSSAIN DE ANDA Potassium Chloride (Potassium Chloride) 20 Meq Tablet.er, 20 MEQ PO DAILY, ( Reported) Entered as Reported by: JESICA BRAGA on 10/06/17 141 Last Taken: Unknown Dose on 04/10/18 Last Action: Discontinued on 04/12/181202 by HUSSAIN DE ANDA Pravastatin Sodium (Pravastatin Sodium) 20 Mg Tablet, 1 TAB PO DAILY, #30 Ref 5 (Reported) Entered as Reported by: JESICA BRAGA on 10/06/17 141 Last Action: Discontinued on 04/12/181202 by CONNIE MONTES MD Apr 13, 2018 15:06
--- NOTE | 2018-04-13 15:55 | NUR ---
Discharge Note: [facility] Discharge instructions and discharge home medications reviewed with patient and a copy given. All questions have been answered and understanding verbalized. The following instructions and handouts were given: Acute bronchitis Diabetes and foot care FF up with PCP in 1 week Patient will have breathing treatments at home, script for nebulizer and duoneb faxed by Pull[employer] Operator to [employer]. Patient instructed to call [phone] ([facility] [facility]) to coordinate delivery of nebulizer and duoneb at her house. Discontinued lines and drains:peripheral catheter intact, patient tolerated removal, no complications noted. Patient discharged to home with self-care via wheelchair at 1446.
== END 2018-04-13 14:46 | disposition home or self-care (01) | DRG 202 ==
LOC: ER 15:38 → 6 SOUTH 19:30
PROVIDERS: ADMIT Internal Medicine; ATTEND Internal Medicine
DX: J20.9 Acute bronchitis, unspecified (principal); J44.1 Chronic obstructive pulmonary disease with (acute) exacerbation; Z68.42 Body mass index [BMI] 45.0-49.9, adult; J44.0 Chronic obstructive pulmonary disease with (acute) lower respiratory infection; E11.9 Type 2 diabetes mellitus without complications; I10 Essential (primary) hypertension; E66.01 Morbid (severe) obesity due to excess calories; F17.210 Nicotine dependence, cigarettes, uncomplicated; Z88.0 Allergy status to penicillin; Z88.2 Allergy status to sulfonamides; Z88.8 Allergy status to other drugs, medicaments and biological substances; Z91.040 Latex allergy status
CPT/HCPCS: 36415; 71046; 80048; 80053; 81001; 82962; 83735; 84484; 85025; 87040; 87804; 90471; 90756; 93005; 94640; 96361; 96374; 99406; J1650; J1815; J2930; J7040; J7620; 99285-25; Q2035